=== PATIENT | male | born 1950 | race Caucasian/White ===

== ENCOUNTER → 2017-07-27 09:17 | Outpatient (CLI) | payer MEDICARE, OTHER, SELFPAY ==
[2017-07-27 10:24] LABS: PSA,Total- Diagnostic 0.04 ng/mL (0.0-4.0)
== END ==
PROVIDERS: Family Provider Family Medicine; PCP Family Medicine; Visit Provider Urology
DX: C61 Malignant neoplasm of prostate (principal)
CPT/HCPCS: 36415; 84153

== ENCOUNTER → 2017-11-04 07:34 | Outpatient (CLI) | payer MEDICARE, OTHER, SELFPAY ==
[2017-11-04 09:14] LABS: PSA,Total- Diagnostic 0.05 ng/mL (0.0-4.0)
== END ==
PROVIDERS: Family Provider Family Medicine; PCP Family Medicine; Visit Provider Urology
DX: C61 Malignant neoplasm of prostate (principal); R97.20 Elevated prostate specific antigen [PSA]
CPT/HCPCS: 36415; 84153

== ENCOUNTER → 2017-11-09 09:36 | Outpatient (CLI) | payer MEDICARE, OTHER, SELFPAY ==
--- NOTE | 2017-11-09 09:45 | RAD_ITS ---
STUDY: X-RAY CHEST REASON FOR EXAM: Male, 66 years old. History of renal cell carcinoma. TECHNIQUE: Frontal and lateral views of the chest. COMPARISON: 05/01/2017. FINDINGS: There is hyperinflation of the lungs consistent with chronic obstructive lung disease (COPD). No infiltrates or effusions There is no demonstrated pleural abnormality. Normal size heart. Normal mediastinum and corona. Normal visualized pulmonary arteries. Normal visualized aortic arch and descending thoracic aorta. There are diffuse degenerative changes of the visualized thoracic spine. Normal visualized ribs, clavicles, and shoulders. There is no demonstrated abnormality of the visualized soft tissue structures of the upper abdomen. RAD/Chest PA and Lateral IMPRESSION: There are findings consistent with COPD. There is no evidence of acute chest disease. Electronically Signed: Sebastian Russell MD at 16:50 EDT , Service support ,
== END ==
PROVIDERS: Family Provider Family Medicine; PCP Family Medicine; Visit Provider Urology
DX: C61 Malignant neoplasm of prostate (principal); Z85.528 Personal history of other malignant neoplasm of kidney
CPT/HCPCS: 71046

== ENCOUNTER → 2017-11-13 06:43 | Outpatient (CLI) | payer MEDICARE, OTHER, SELFPAY ==
--- NOTE | 2017-11-13 06:44 | CT_ITS ---
STUDY: CT ABDOMEN AND PELVIS WITH CONTRAST REASON FOR EXAM: Male, 66 years old. The patient has a history of prostate cancer and renal cell carcinoma. Partial right nephrectomy and prostatectomy. RADIATION DOSAGE (If Supplied By Facility): CTDIvol = ( 14.09 ) mGy, DLP = ( 1379.09 ) mGycm TECHNIQUE: Transaxial images were obtained from the dome of the diaphragm to the symphysis pubis without oral contrast. 100mL ml of Isovue 300 contrast was administered. Sagittal and coronal images were reconstructed. Individualized dose optimization techniques were used for this CT. COMPARISON: Comparison is made with prior study dated April 13, 2017. FINDINGS: The visualized lung bases are unremarkable. The visualized portions of the heart are within normal limits. There is decreased attenuation of the liver consistent with steatosis. I suspect tiny gallstones along the dependent portion of the gallbladder lumen. Normal spleen. Normal pancreas. Normal bilateral adrenal glands. Post surgical changes are seen along the posterior midportion of the right kidney. There is a residual 1.7 cm x 1.7 cm rounded fluid collection at the operative site. This may represent a small renal cyst or chronic postoperative changes. Normal left kidney. There is a small hiatal hernia. Normal small intestine. There are multiple colonic diverticula consistent with diverticulosis. The appendix is visualized and appears normal. There is scattered atherosclerotic calcification of the abdominal aorta, without a demonstrated aneurysm. Normal inferior vena cava. Normal retroperitoneum. Normal urinary bladder. The patient is status post prostatectomy. There is a small umbilical hernia containing fat. Small right inguinal hernia containing fat. There are degenerative changes of the visualized lumbar spine. CT/Abdomen/Pelvis WITH Contrast IMPRESSION: Fatty infiltration of the liver. Sigmoid diverticulosis. Residual postoperative changes along the lateral aspect of the right kidney. This has improved as compared to prior study. Electronically Signed: Alessandro Garcia MD at 12:49 EDT Tel [phone], Service support ,
[2017-11-13 06:56] LABS: CREATININE FINGERSTICK 1.1 mg/dL (0.70-1.30); EGFR FINGERSTICK > 60.0000 mL/min (>60)
== END ==
PROVIDERS: Family Provider Family Medicine; PCP Family Medicine; Visit Provider Urology
DX: C61 Malignant neoplasm of prostate (principal); Z85.528 Personal history of other malignant neoplasm of kidney
CPT/HCPCS: 74177; Q9967; A4216

== ENCOUNTER → 2018-05-06 07:41 | Outpatient (CLI) | payer MEDICARE, OTHER, SELFPAY ==
[2018-05-06 09:06] LABS: PSA,Total- Diagnostic 0.14 ng/mL (0.0-4.0)
== END ==
PROVIDERS: Family Provider Family Medicine; PCP Family Medicine; Referring Provider Urology; Visit Provider Urology
DX: Z85.46 Personal history of malignant neoplasm of prostate (principal)
CPT/HCPCS: 36415; 84153

== ENCOUNTER → 2018-09-02 08:12 | Outpatient (CLI) | payer MEDICARE, OTHER, SELFPAY ==
[2018-09-02 09:11] LABS: PSA,Total- Diagnostic 0.24 ng/mL (0.0-4.0)
== END ==
PROVIDERS: Family Provider Family Medicine; PCP Family Medicine; Referring Provider Urology; Visit Provider Urology
DX: C61 Malignant neoplasm of prostate (principal)
CPT/HCPCS: 36415; 84153

== ENCOUNTER → 2018-12-08 13:25 | Outpatient (CLI) | payer MEDICARE, OTHER, SELFPAY ==
[2018-12-08 15:12] LABS: Absolute Lymphocyte Count 2.19 X10^3/ul (0.83-4.51); Absolute Neutrophil Count 3.7 X10^3/uL (2.0-7.7); Basophil# 0.04 X10^3/uL; Basophil% 0.6 % (0-1); Eosinophil# 0.18 X10^3/uL; Eosinophils% 2.7 % (0-5); Hematocrit 39.4 % (40-54); Lymphocyte # 2.19 X10^3/ul (4.0); Lymphocyte % 32.7 % (19-41); Mean Corp Hgb Conc 35.5 g/gl (32-36); Mean Corpuscular Volume 90.2 fL (80-94); Mean Platelet Vol. 10.9 fl (6.2-12.0); Monocyte# 0.59 X10^3/uL; Monocyte% 8.8 % (0-10); Neutrophil # 3.68 X10^3/uL (2.7-7.7); Neutrophil % 55.1 % (47-70); Platelet Count 192 K/mm3 (150-450); RBC Distribution Width CV 12.4 % (11.6-14.6); RBC Distribution Width SD 40.7 fl (35.1-43.9); Red Blood Count 4.37 M/mm3 (4.6-6.2); White Blood Count 6.7 K/mm3 (4.4-11.0)
[2018-12-08 15:19] LABS: POSITIVE COUNT NO; POSITIVE DIFFERENTIAL NO; POSITIVE MORPHOLOGY NO
[2018-12-08 15:33] LABS: Creatinine, Serum 1.17 mg/dL (0.70-1.30); EST Glomerular Filtration Rate 66 mL/min (>60); Est Glom Filt Rate - Afr Amer 80 mL/min (>60); PSA,Total- Diagnostic 0.08 ng/mL (0.0-4.0)
== END ==
LOC: LABSPEC 13:28 → LAB 13:29
PROVIDERS: Family Provider Family Medicine; PCP Family Medicine; Referring Provider Radiology Radiation Oncology; Visit Provider Radiology Radiation Oncology
DX: Z01.818 Encounter for other preprocedural examination (principal); C61 Malignant neoplasm of prostate
CPT/HCPCS: 36415; 82565; 84153; 85025

== ENCOUNTER → 2018-12-09 14:12 | Outpatient (CLI) | payer MEDICARE, OTHER, SELFPAY ==
--- NOTE | 2018-12-09 14:19 | CT_ITS ---
STUDY: CT ABDOMEN AND PELVIS WITH CONTRAST REASON FOR EXAM: Male, 67 years old. Prostate carcinoma recurrence. This is a radiation therapy planning exam RADIATION DOSAGE (If Supplied By Facility): CTDIvol = ( 24.62 ) mGy, DLP = ( 2399.17 ) mGycm TECHNIQUE: Transaxial images were obtained from the dome of the diaphragm to the symphysis pubis with oral contrast. 100 IV/Oral Isovue 300 was administered. Sagittal and coronal images were reconstructed. Individualized dose optimization techniques were used for this CT. COMPARISON: None. FINDINGS: The visualized lung bases are unremarkable. The visualized portions of the heart are within normal limits. Normal liver. Normal gallbladder and extrahepatic biliary system. Normal spleen. Normal pancreas. Normal bilateral adrenal glands. Normal right kidney. Normal left kidney. Normal visualized stomach. Normal small intestine. There are multiple colonic diverticula consistent with diverticulosis. The appendix is visualized and appears normal. Normal abdominal aorta. Normal inferior vena cava. Normal retroperitoneum. Excreted IV contrast noted within the bladder. Prior prostatectomy. There appears to be radiation therapy seeds in the region of the prostate. There is a small umbilical hernia containing fat. There are diffuse degenerative changes of the visualized lumbar spine. CT/Abdomen/Pelvis WITH Contrast IMPRESSION: No acute findings throughout the abdomen or pelvis. Prior prostatectomy. Metallic seeds within the region of the prostate. Remainder is within normal limits as detailed above Electronically Signed: Alfred Dubon DO at 11:14 EDT Tel , Service support ,
--- NOTE | 2018-12-09 15:52 | NURSING ---
DURING CT A 16FR BELTRAN CATHETER WAS USED TO EXPEL AIR FROM THE RECTUM FOR THE PROSTATE PLANNING CT.
== END ==
PROVIDERS: Family Provider Family Medicine; PCP Family Medicine; Referring Provider Radiology Radiation Oncology; Visit Provider Radiology Radiation Oncology
DX: C61 Malignant neoplasm of prostate (principal); Z90.79 Acquired absence of other genital organ(s)
CPT/HCPCS: 74177; Q9967

== ENCOUNTER → 2018-12-29 18:04 | Outpatient (CLI) | payer MEDICARE, OTHER, SELFPAY ==
[2018-12-29 20:15] LABS: M R Staph aureus DNA By PCR Negative (Negative); Probe Check PASS; Staph aureus DNA By PCR NEGATIVE (Negative)
== END ==
PROVIDERS: Family Provider Family Medicine; PCP Family Medicine; Referring Provider Podiatrist; Visit Provider Podiatrist
DX: L60.0 Ingrowing nail (principal)
CPT/HCPCS: 87070; 87075; 87077; 87186; 87205; 87640

== ENCOUNTER → 2019-01-05 10:13 | Outpatient (CLI) | payer MEDICARE, OTHER, SELFPAY ==
[2019-01-05 11:27] LABS: Absolute Lymphocyte Count 0.76 X10^3/ul (0.83-4.51); Absolute Neutrophil Count 2.6 X10^3/uL (2.0-7.7); Basophil# 0.01 X10^3/uL; Basophil% 0.2 % (0-1); Eosinophil# 0.09 X10^3/uL; Eosinophils% 2.2 % (0-5); Hematocrit 36.9 % (40-54); Lymphocyte # 0.76 X10^3/ul (4.0); Mean Corp Hgb Conc 35.2 g/gl (32-36); Mean Corpuscular Hgb 31.3 pg (27.0-32.0); Mean Corpuscular Volume 88.9 fL (80-94); Mean Platelet Vol. 10.1 fl (6.2-12.0); Monocyte# 0.55 X10^3/uL; Monocyte% 13.7 % (0-10); Neutrophil % 64.9 % (47-70); Platelet Count 148 K/mm3 (150-450); RBC Distribution Width CV 12.1 % (11.6-14.6); RBC Distribution Width SD 38.4 fl (35.1-43.9); Red Blood Count 4.15 M/mm3 (4.6-6.2)
[2019-01-05 11:29] LABS: POSITIVE COUNT NO; POSITIVE DIFFERENTIAL NO; POSITIVE MORPHOLOGY NO
== END ==
PROVIDERS: Family Provider Family Medicine; PCP Family Medicine; Referring Provider Radiology Radiation Oncology; Visit Provider Radiology Radiation Oncology
DX: C61 Malignant neoplasm of prostate (principal)
CPT/HCPCS: 36415; 85025

== ENCOUNTER → 2019-01-31 09:22 | Outpatient (CLI) | payer MEDICARE, OTHER, SELFPAY ==
[2019-01-31 09:40] LABS: Absolute Lymphocyte Count 0.61 X10^3/uL (0.83-4.51); Absolute Neutrophil Count 4.3 X10^3/uL (2.0-7.7); Basophil# 0.02 X10^3/uL; Basophil% 0.3 % (0-1); Eosinophil# 0.13 X10^3/uL; Eosinophils% 2.2 % (0-5); Hemoglobin 12.5 g/dL (13.0-16.5); Lymphocyte # 0.61 X10^3/ul (4.0); Lymphocyte % 10.5 % (19-41); Mean Corp Hgb Conc 35.7 g/dL (32-36); Mean Corpuscular Volume 92.3 fL (80-94); Mean Platelet Vol. 9.6 fl (6.2-12.0); Monocyte% 12.1 % (0-10); NRBC Flagged by Analyzer 0 % (0-5); Neutrophil % 74.4 % (47-70); Platelet Count 170 K/mm3 (150-450); RBC Distribution Width CV 13.1 % (11.6-14.6); RBC Distribution Width SD 43.6 fl (35.1-43.9); Red Blood Count 3.79 M/mm3 (4.6-6.2); White Blood Count 5.8 K/mm3 (4.4-11.0)
== END ==
PROVIDERS: Family Provider Family Medicine; PCP Family Medicine; Referring Provider Radiology Radiation Oncology; Visit Provider Radiology Radiation Oncology
DX: C61 Malignant neoplasm of prostate (principal)
CPT/HCPCS: 36415; 85025

== ENCOUNTER 2019-04-27 10:52 | Day surgery (SDC) | payer MEDICARE, OTHER, SELFPAY ==
--- NOTE | 2019-04-20 01:54 | HP_ITS ---
Intake Vital Signs 04/20/19 Body Mass Index (BMI) 26.2 04/20/19 Height 5 ft 10 in 04/20/19 Weight: 196 lb 04/20/19 Body Mass Index (BMI) 28.1 04/20/19 Blood Pressure 155/79 H 04/20/19 Blood Pressure Location Rt brachial 04/20/19 Blood Pressure Position Sitting 04/20/19 Respiratory Rate 16 Intake Visit Reasons: Incisional Umbilical Hernia Chief Complaint: Syncope and Anemia Application Support Developer Required: No Is patient in pain?: No Allergies adhesive tape Allergy (Verified 04/20/19 13:12) blisters surgical tape Allergy (Uncoded 04/20/19 13:12) Rash Medications Amlodipine Besylate [Norvasc] 10 mg PO DAILY 04/23/17 [History Confirmed 04/20/19] Cider Vinegar [Apple Cider Vinegar] 300 mg PO QODAY 04/23/17 [History Confirmed 04/20/19] [facility] Medical History Postoperative atrial fibrillation (Acute) Near syncope (Acute) HTN (hypertension) (Chronic) Anemia (Acute) Prostate CA (Acute) Anemia (Inactive) Atrial fibrillation with RVR (Inactive) Hematuria (Inactive) Surgical History History of partial nephrectomy (Chronic) History of hand surgery (Resolved) S/P radical cystoprostatectomy (Resolved) History of partial nephrectomy (Inactive) S/P radical cystoprostatectomy (Inactive) Family History Mother CVA (cerebral vascular accident) Heart disease Father Heart disease Social History (Updated 04/20/19 @ 13:55 by Blayne Epperson MD) Smoking Status: Former smoker alcohol intake: current substance use type: does not use HPI HPI HPI: MARY ANN SCHROEDER, is a 68 M who presents to the office today for HPI HPI Surgical H&P: Yes HPI: MARY ANN SCHROEDER, is a 68 M who presents to the office today for Evaluation for an incisional hernia at his umbilicus. Patient has had a robotic prostatectomy and has developed a large hernia at his umbilical incision. He has not noticed any change in his bowel or bladder habits. It has gradually gotten larger over the last several years. ROS General General: No weight change, appetite, fatigue, colon cancer, breast cancer or weakness HEENT HEENT: No difficulty swallowing, eye injury, eye surgery, swollen glands or hoarseness Endo Endocrine: No thyroid disease, diabetes mellitus, thyroid cancer, Hair loss, heat intolerance or cold intolerance Skin Skin: No rash or changing moles Breast Breast: No left breast lump, right breast lump, nipple discharge, breast pain, abnormal mammogram, abnormal US or breast enlargement Musc Musculoskeletal: No back problems, arthritis, rheumatoid arthritis, gout or joint pain Cardio Cardiovascular: Yes high blood pressure; no murmur, pacemaker, heart disease, atrial fibrillation, heart attack, heart stent, palpitations, shortness of breat with exertion or chest pain Psych Psychiatric: Yes anxiety; no depression or hearing voices Resp Respiratory: No shortness of breath, No sleep apnea, No cough, No COPD, No asthma, No emphysema, No wheezing Gastro Gastrointestinal: No abdominal pain, No nausea or vomiting, No diarrhea, No constipation, No blood in stool, No acid reflux, Yes hemorrhoids, No ulcers, No gallbladder problem, No black,tarry stools Mike Hematologic: No blood thinners, No blood disorders, No bleeding, No anemia, No blood clots Neuro Neurologic: No system reviewed and no additional complaints, except as docu, No as per HPI, No abnormal walking, No abnormal hearing, No abnormal movements, No abnormal speech, No behavioral changes, No burning sensations, No confusion, No seizure-like activity, No unsteadiness, No dizziness, No localized weakness, No frequent falls, No headache(s), No lack of coordination, No loss of vision, No memory loss, No numbness, No other visual disturbances, No radiating pain, No restless legs, No sensory deficit, No fainting, No tingling, No tremor(s), No weakness, No other Exam Const General: no acute distress, well developed, well hydrated Orientation: oriented to person, oriented to place, oriented to time [facility] Head: normocephalic, atraumatic Ears: external ears normal Mouth: moist mucous membranes Eyes Sclera: sclerae normal Pupils: normal by confrontation Neck Neck: no lymphadenopathy noted Neck mass: No Thyroid: thyroid normal, symmetrical Chest Chest palpation & inspection: normal inspection of the chest Breast Palpation: No nipple discharge Resp Effort & Inspection: normal respiratory effort Auscultation: clear to auscultation bilaterally Percussion: percussion normal Cardio Rate: regular rate Rhythm: regular rhythm Heart Sounds: no murmurs GI Palpation: soft, no hepatosplenomegaly, no masses, tender Rectal Exam: other Other: An incisional hernia is identified at the umbilicus.It is reducible. No inguinal hernias are identified. Rectal exam deferred. Extrem General: normal to inspection, no clubbing, cyanosis or edema Assessment & Plan Problems 1. Incisional hernia, without obstruction or gangrene K43.2; K43.91 Plan My plan is to perform And incisional hernia repair at the umbilicus. We will use mesh. repair. The planned surgical procedure was discussed extensively with the patient. The risks, benefits, anticipated outcomes and possible complication were mentioned. The patient understands that all hernia repair surgery has a chance of recurrence and/or chronic post-operative pain. My staff has also explained the procedure in understandable terms and the patient was given the option to take printed material concerning the planned procedure. The patient had the opportunity to ask questions concerning the planned procedure. The patient freely consents to the planned procedure. I believe doing a transverse incision hair would probably be the best given the thinness of the skin at his umbilicus. Coding Level of Care Code Off vis,est,level 3 Diagnoses Incisional hernia, without obstruction or gangrene K43.2; K43.91 ??Obstruction and gangrene presence: without obstruction or gangrene 04/20/19 9835 <Electronically signed by Blayne kay MD> Date _ Blayne Epperson MD I have re-examined the patient. There are no clinical changes since date of exam.
[2019-04-20 13:14] VITALS: BMI 26.2
[2019-04-27] VITALS (7 sets, daily range): BP systolic 132–167; BP diastolic 95–103; PULSE 74–103; RESP 16–18; TEMP 36.3–36.8; O2SAT 94–99; BMI 27.2
[2019-04-27] MEDS: Lactated Ringers 1,000 ML 100 ML IV (11:53)
[2019-04-27] MEDS: Cefazolin 2 GM in 0.9% Normal Saline 100 ML IV (12:40)
[2019-04-27] MEDS: 0.9% Normal Saline (Pres. free 10 ML Vial (13:00)
[2019-04-27] MEDS: BUPIVACAINE LIPOSOME/PF 20 ML VIAL OPERA.SITE (13:00)
--- NOTE | 2019-04-27 13:43 | PCM.OPRPT ---
Problem List (1) Incisional hernia without obstruction or gangrene Status: Acute Report of Operation Date of Procedure: 04/27/19 Pre-Operative Diagnosis: Incisional hernia without obstruction or gangrene Post-Operative Diagnosis: Same Surgery/Procedure Performed:: Incisional hernia repair with mesh. (Ventrio ST hernia patch reference #[id number] lot number [id number]) Type of Anesthesia:: General Anesthesiologist: Joss Block Specimen's removed: none Estimated Blood Loss (mL): < 25 cc Fluids Replaced: 1 L LR Description of Procedure: She was brought into the operating room placed in the supine position under excellent general trach intubation the abdomen was sterilely prepped draped usual fashion patient had a previous port site placed above his umbilicus from a robotic prostatectomy I injected local made a transverse incision on the upper aspect over the incisional hernia at the umbilicus. I dissected down the patient had a rather large [place] cheese defect just above the umbilicus and in the umbilicus itself. I sharply took the peritoneum off of the umbilicus as not to injure the skin of the umbilicus and this was obtained without buttonholing. I then created a preperitoneal window all along the edge of the [place] cheese defect which extended in a cephalad direction. I inspected the bowel I did not see any adhesions on the hernia defect itself. I injected local all around the fascial edges. I then placed the to the wound. I sequentially tacked it down with #1 Nurolon's to the surrounding good fascia. I had a nice defect closure with this and good coverage. The wound was irrigated subcu was brought together with 2-0 Vicryl deep dermals of 3-0 Vicryl then a running 4-0 Monocryl. Dermabond was applied sterile dressings were applied and the patient tolerated the procedure well - Admit VTE Documentation VTE Present on Admission: No VTE Mechan Device Prophylaxis: SCD's VTE Pharm Prophylaxis ordered?: No Reason prophylaxis not ordered:: Treatment Not Indicated
--- NOTE | 2019-04-27 13:51 | DCINST_ITS ---
Discharge Diet: Light diet - advance as tolerated Discharge Activity: Return to Normal Activity, May Drive - when you are no longer taking narcotic pain medications., May Shower - with the bandage in place 1-2 days after surgery. Lifting Restrictions: 20 pounds for 8 weeks. Additional Activity Instructions:: Climbing stairs is fine, walking is encouraged. Sitting in bed may be uncomfortable. Sitting up using your lateral muscles (sitting up sideways) is usually more comfortable. Do not drive, work heavy equipment of sign legal documents for 24 hours. If your hernia repair was an ingunial repair, you may have scrotal swelling, an ice pack and/or athletic support can provide more comfort. Pain medications may cause nausea, you should typically eat light foods as you take your pain medications. Pain medications may also cause constipation. If you have difficulty with this, discuss with your doctor. Call your doctor if your incision/area has: Continuous Slow Oozing, Sudden Increased Bleeding, Increased Pain/ Swelling, Increased Redness, Foul Smelling Discharge Call your doctor if you observe: Fever of 101 or Higher Suture Line Care: Avoid Pulling/Pushing, Avoid Pinching/Bending Additional Dressing/Incision Instructions:: Leave the operative bandage on for 2-3 days. When you remove the bandage, leave the steri-strips on place until your follow up appointment or they fall off. Allergies/Adverse Reactions: Allergies adhesive tape Allergy (Verified 04/20/19 13:12) blisters surgical tape Allergy (Uncoded 04/20/19 13:12) Rash Medications to take at Discharge Amlodipine Besylate [Norvasc] 10 mg PO DAILY 04/23/17 Daily Defense 1 tab PO DAILY 04/21/19 Flourocil 1 dose TOPICAL DAILY 04/21/19 Oxycodone HCl/Acetaminophen [Percocet 5/325] 1 - 2 tab PO Q4H PRN PRN 6 Days #30 tab 04/27/19 The following prescriptions were given: Oxycodone HCl/Acetaminophen [Percocet 5/325] 1 - 2 tab PO Q4H PRN PRN 6 Days #30 tab PRN Reason: Pain Prescription Printed Primary Care Physician: Milton Mccurdy III, MD [Primary Care Provider] - Test Results: Test results from this visit will be discussed in further detail at your follow- up appointment, if applicable. Please Follow Up With: Blayne Epperson MD - [phone] When: Plan to have a follow up appointment in 7 days. Call to schedule.
== END 2019-04-27 15:35 | disposition home or self-care (01) ==
LOC: SDC 10:52 → AC 10:53
PROVIDERS: Family Provider Family Medicine; PCP Family Medicine; Referring Provider Surgery; Visit Provider Surgery
PROC: (CPT 49560; principal; 2019-04-27 12:45)
DX: K43.2 Incisional hernia without obstruction or gangrene (principal); I10 Essential (primary) hypertension; E78.00 Pure hypercholesterolemia, unspecified; F41.1 Generalized anxiety disorder; Z86.2 Personal history of diseases of the blood and blood-forming organs and certain disorders involving the immune mechanism; Z85.828 Personal history of other malignant neoplasm of skin; Z85.46 Personal history of malignant neoplasm of prostate; Z85.528 Personal history of other malignant neoplasm of kidney; Z87.891 Personal history of nicotine dependence; Z90.5 Acquired absence of kidney
CPT/HCPCS: 49560; 49568; 93005; J7120; C1781; J3490

== ENCOUNTER → 2019-08-18 07:38 | Outpatient (CLI) | payer MEDICARE, OTHER, SELFPAY ==
[2019-04-27 11:28] VITALS: BMI 27.2
[2019-08-18 08:25] LABS: PSA,Total- Diagnostic 0.02 ng/mL (0.0-4.0)
== END ==
PROVIDERS: PCP Family Medicine; Referring Provider Urology; Visit Provider Urology
DX: C61 Malignant neoplasm of prostate (principal)
CPT/HCPCS: 36415; 84153

== ENCOUNTER → 2020-02-15 10:19 | Outpatient (CLI) | payer MEDICARE, OTHER, SELFPAY ==
[2019-04-27 11:28] VITALS: BMI 27.2
[2020-02-15 11:57] LABS: PSA,Total- Diagnostic 0.15 ng/mL (0.0-4.0)
== END ==
PROVIDERS: PCP Family Medicine; Referring Provider Urology; Visit Provider Urology
DX: C61 Malignant neoplasm of prostate (principal)
CPT/HCPCS: 36415; 84153

== ENCOUNTER → 2020-06-12 11:30 | Outpatient (CLI) | payer MEDICARE, OTHER, SELFPAY ==
[2019-04-27 11:28] VITALS: BMI 27.2
[2020-06-12 13:10] LABS: PSA,Total- Diagnostic 0.23 ng/mL (0.0-4.0)
== END ==
PROVIDERS: PCP Family Medicine; Referring Provider Urology; Visit Provider Urology
DX: C61 Malignant neoplasm of prostate (principal)
CPT/HCPCS: 36415; 84153

== ENCOUNTER → 2020-11-23 10:48 | Outpatient (CLI) | payer MEDICARE, OTHER, SELFPAY ==
[2019-04-27 11:28] VITALS: BMI 27.2
== END ==
PROVIDERS: Referring Provider Urology; Visit Provider Urology
DX: C61 Malignant neoplasm of prostate (principal)
CPT/HCPCS: 36415; 84153

== ENCOUNTER → 2021-02-15 09:32 | Outpatient (CLI) | payer MEDICARE, OTHER, SELFPAY ==
--- NOTE | 2021-02-15 09:42 | RAD_ITS ---
STUDY: X-RAY - LUMBAR SPINE REASON FOR EXAM: Male, 70 years old. LOW BACK PAIN TECHNIQUE: 5 radiographic view(s) of the lumbar spine were obtained. COMPARISON: None FINDINGS: Normal lumbar lordosis. There is no substantial scoliosis. There is a normal alignment of the vertebrae. There is multilevel endplate spondylosis of the lumbar vertebrae. Normal disc space heights. There is no demonstrated spondylolysis of the pars interarticulares. Partially visualized bowel gas pattern is nonobstructive. RAD/L/S Spine Min 4 Views IMPRESSION: Degenerative changes of the spine, as detailed above. Electronically Signed: Isma Arcos MD at 8:02 EDT Tel , Service support ,
== END ==
PROVIDERS: PCP Family Medicine; Referring Provider Chiropractor; Visit Provider Chiropractor
DX: M54.5 Low back pain (principal); M51.34 Other intervertebral disc degeneration, thoracic region; M51.36 Other intervertebral disc degeneration, lumbar region; M99.03 Segmental and somatic dysfunction of lumbar region; M99.05 Segmental and somatic dysfunction of pelvic region; M99.02 Segmental and somatic dysfunction of thoracic region
CPT/HCPCS: 72110

== ENCOUNTER → 2021-02-18 14:16 | Outpatient (CLI) | payer MEDICARE, OTHER, SELFPAY ==
[2019-04-27 11:28] VITALS: BMI 27.2
--- NOTE | 2021-02-18 14:20 | CT_ITS ---
STUDY: CT ABDOMEN AND PELVIS WITH CONTRAST REASON FOR EXAM: Male, 70 years old. Right flank pain. Gross hematuria. The patient has a history of prostate and renal carcinoma. RADIATION DOSAGE (If Supplied By Facility): CTDIvol = ( 13.16 ) mGy, DLP = ( 848.01 ) mGycm TECHNIQUE: Transaxial images were obtained from the dome of the diaphragm to the symphysis pubis without oral contrast. IV 100mL Isovue-300 was administered. Sagittal and coronal images were reconstructed. Individualized dose optimization techniques were used for this CT. COMPARISON: Comparison is made with prior study dated 12/09/2018. FINDINGS: The visualized lung bases are unremarkable. The visualized portions of the heart are within normal limits. There is decreased attenuation of the liver consistent with steatosis. Normal gallbladder and extrahepatic biliary system. Normal spleen. Normal pancreas. There is a small, circumscribed, smooth, low attenuation left adrenal mass, consistent with an adrenal adenoma. This measures 1.2 cm. Normal right adrenal gland. Some cortical thinning and postoperative changes are seen in the posterior midportion of the right kidney in keeping with prior surgical intervention. Normal left kidney. Normal visualized stomach. Normal small intestine. There are scattered colonic diverticula consistent with diverticulosis. The appendix is visualized and appears normal. There is scattered atherosclerotic calcification of the abdominal aorta, without a demonstrated aneurysm. Normal inferior vena cava. Normal retroperitoneum. Normal urinary bladder. Metallic radiation seeds are seen in the prostate bed. The patient is status post prostatectomy. There is a small umbilical hernia containing fat. There are degenerative changes of the visualized lumbar spine. CT/Abdomen/Pelvis WITH Contrast IMPRESSION: Cortical thinning and postoperative changes are seen in the posterior midportion of the right kidney. This is in keeping with prior surgical intervention. Electronically Signed: Alessandro Garcia MD at 15:09 EDT , Service support ,
[2021-02-18 14:46] LABS: CREATININE FINGERSTICK 1.4 mg/dL (0.70-1.30)
== END ==
PROVIDERS: PCP Family Medicine; Referring Provider Urology; Visit Provider Urology
DX: R31.0 Gross hematuria (principal)
CPT/HCPCS: 74177; Q9967

== ENCOUNTER → 2021-02-26 09:01 | Outpatient (CLI) | payer MEDICARE, OTHER, SELFPAY ==
[2021-02-26 10:02] LABS: PSA,Total- Diagnostic 0.86 ng/mL (0.0-4.0)
== END ==
PROVIDERS: PCP Family Medicine; Referring Provider Urology; Visit Provider Urology
DX: C61 Malignant neoplasm of prostate (principal)
CPT/HCPCS: 36415; 84153

== ENCOUNTER → 2021-04-02 13:48 | Outpatient (CLI) | payer MEDICARE, OTHER, SELFPAY ==
--- NOTE | 2021-04-02 13:30 | PET_ITS ---
EXAMINATION: 18F Fluciclovine PET/CT CLINICAL HISTORY: A 70-year-old male with history of carcinoma of the prostate and primary renal cell carcinoma presenting for restaging examination. COMPARISON EXAMINATION: CT of the abdomen and pelvis report dated 02/18/21 PROCEDURE: The patient received an intravenous bolus injection of Axumin (fluciclovine F-18), on the imaging table with the patient in the supine position followed by an intravenous normal saline flush. The patient in the supine position with arms above the head, CT scan for attenuation correction was performed immediately following the bolus injection and left up for 1-2 minutes. The PET scan acquisition was begun within 3-5 minutes following injection from mid thigh to the base of the skull. The total scan time was registered between 20-30 minutes. Axumin (fluciclovine F-18) injection is indicated for positron emission tomography PET imaging in men with suspected prostate cancer recurrence based on elevation of the serum prostatic surface antigen (PSA) levels following prior treatment intervention. REFERENCE SUVs: LIVER PARENCHYMA: 5.9 BLOOD POOL: 1.1 BONE MARROW: 2.4 FINDINGS: Head/Neck: Symmetric radiopharmaceutical concentration is defined in the bilateral submandibular and parotid glands. There is no evidence of abnormal increased radiopharmaceutical concentration within the cranial vault. CHEST: There is no evidence of 18F fluciclovine uptake noted within the context of the right and left hemithorax pulmonary parenchyma, mediastinal structures or left and right thoracic perihilum. Physiologic tracer uptake is demonstrated in the left ventricular myocardium. Pertinent chest CT findings are as follows. There is atherosclerotic calcification defined in the thoracic aorta without evidence of dilatation-aneurysm formation. Coronary arterial calcification is observed. Bilateral axillary soft tissue densities with fatty hilus reveal no evidence of increased tracer uptake. There is questionable evidence of an apparent lipoma involving the left anterior chest wall. Abdomen/Pelvis: There is a subtle increase in radiopharmaceutical concentration defined in the right hemipelvis which appears associated with and/or contiguous to the right obturator externus with associated calcification. The calculated maximal standard uptake value is 2.2, less than bone marrow and liver reference. There is no evidence of abnormal increased tracer uptake on review of all three axis reconstructions. Physiologic radiopharmaceutical concentration is observed in the bilateral kidneys, urinary bladder, hepatic and splenic parenchyma, the pancreatic head-tail, visualized intestinal tract. The right kidney demonstrates markedly prominent tracer concentration. Pertinent abdomen and pelvis CT findings are as follows. There is atherosclerotic calcification defined in the abdominal aorta without evidence of dilatation-aneurysm formation. Bilateral inguinal soft tissue densities with fatty hilus are ametabolic. The prostate gland appears surgically absent. Surgical clip placement is defined in the bilateral lower hemipelvis. Skeletal: Degenerative changes are noted in the cervical, thoracic and lumbar spine without evidence of increased radiopharmaceutical concentration. There is no evidence of sclerotic, mixed sclerotic-lytic and/or lytic changes noted on review of the skeletal structures demonstrating evidence of facilitated tracer uptake. PET/PET/CT Tumor Base -Thigh Subs IMPRESSION: 1. NEGATIVE EXAMINATION. There is no definitive quantitative scintigraphic evidence of 18F fluciclovine avid recurrent-metastatic viable neoplastic disease. 2. Enhanced tracer uptake observed in the region of the right obturator externus musculature does not fulfill quantitative criteria for neoplasia and may represent inflammatory changes. (Valeria et al, Journal of Nuclear Medicine 55:1986, 2014). If neoplasia remains a diagnostic consideration, histopathologic sampling is recommended. Electronic Signature Christiano Brooks D.O. Electronically Signed: Christiano Brooks DO at 12:28 EDT Tel , Service support ,
== END ==
PROVIDERS: PCP Family Medicine; Referring Provider Urology; Visit Provider Urology
DX: C61 Malignant neoplasm of prostate (principal)
CPT/HCPCS: 78815; A9552; A9588

== ENCOUNTER → 2021-05-31 11:34 | Outpatient (CLI) | payer MEDICARE, OTHER, SELFPAY ==
[2021-05-31 13:22] LABS: PSA,Total- Diagnostic 1.23 ng/mL (0.0-4.0)
== END ==
PROVIDERS: PCP Family Medicine; Visit Provider Urology
DX: C61 Malignant neoplasm of prostate (principal)
CPT/HCPCS: 36415; 84153

== ENCOUNTER 2021-08-30 10:09 | Outpatient (CLI) | payer MEDICARE, OTHER, SELFPAY ==
[2021-08-30 11:07] LABS: PSA,Total- Diagnostic 0.08 ng/mL (0.0-4.0)
== END 2021-08-30 23:59 | disposition home or self-care (01) ==
LOC: LAB 10:11
PROVIDERS: PCP Family Medicine; Referring Provider Urology; Visit Provider Urology
DX: C61 Malignant neoplasm of prostate (principal)
CPT/HCPCS: 36415; 84153

== ENCOUNTER → 2022-01-17 | Outpatient (CLI) | payer MEDICARE, OTHER, SELFPAY | END | disposition home or self-care (01) | LOC: LAB 07:37 | PROVIDERS: PCP Family Medicine; Referring Provider Urology; Visit Provider Urology | DX: C61 Malignant neoplasm of prostate (principal) | CPT/HCPCS: 36415; 84153 ==

== ENCOUNTER → 2022-02-14 | Outpatient (CLI) | payer MEDICARE, OTHER, SELFPAY ==
--- NOTE | 2022-02-14 09:40 | TELEMED_ITS ---
[facility] has confirmed receipt of a request for visit. This document confirms receipt of the order initiating the consult. To find the results of the consultation, please view the patient's reports for the scanned Telemed Consult.
== END | disposition home or self-care (01) ==
LOC: PSN 08:22
PROVIDERS: PCP Family Medicine; Referring Provider Nurse Practitioner; Visit Provider Nurse Practitioner
DX: R47.9 Unspecified speech disturbances (principal)
CPT/HCPCS: 95819

== ENCOUNTER → 2022-05-23 | Outpatient (CLI) | payer MEDICARE, OTHER, SELFPAY ==
[2022-05-23 09:46] LABS: PSA,Total - Annual Screen 1.34 ng/mL (0.00-4.00)
[2022-05-23 14:25] LABS: PSA,Total- Diagnostic 1.34 ng/mL (0.0-4.0)
== END | disposition home or self-care (01) ==
LOC: LAB 08:13
PROVIDERS: PCP Family Medicine; Visit Provider Urology
DX: C61 Malignant neoplasm of prostate (principal)
CPT/HCPCS: 36415; 84153; G0103

== ENCOUNTER → 2022-06-04 | Outpatient (CLI) | payer MEDICARE, OTHER, SELFPAY ==
--- NOTE | 2022-06-04 10:30 | PET_ITS ---
EXAMINATION: F 18 Pylarify PET-CT INDICATIONS: A 71-year-old male with history of carcinoma of the prostate presenting for restaging examination. COMPARISON: 18F Fluciclovine PET CT dated 04/02/21. TECHNIQUE: Following the intravenous administration of 9.387 mCi of PSMA-Pylarify via the right antecubital fossa, image acquisitions of the head, neck, chest, abdomen and pelvis to the level of the mid thigh at 73 minutes post-tracer distribution reveal: The examination was interpreted using the EANM (Faye et al., Journal of Nuclear Medicine Molecular Imaging 44:1622, 2017) and PROMISE (Sruthi et al., Journal of Nuclear Medicine 59:469, 2018) interpretive criteria. HEIGHT: 70 inches. WEIGHT: 190 lbs. PSMA expression score PROMISE (PROSTATE CANCER MOLECULAR IMAGING STANDARDIZED EVALUATION) criteria: High (3): SUV ? parotid-salivary gland, intermediate (2): SUV ? liver, low (1): > blood pool, < liver, (0): < blood pool. SUV reference values: Parotid glands 27.49 Normal liver parenchyma 7.6 Blood pool 1.9 FINDINGS: Head/Neck: Symmetric radiopharmaceutical concentration defined in the parotid and submandibular glands. Physiologic activity is noted in the nasal cavity. There is no evidence of abnormal increased tracer uptake within the cranial vault. CHEST: There is no evidence of abnormal increased radiopharmaceutical within the context of the bilateral hemithorax pulmonary parenchyma, mediastinal structures and right-left thoracic perihilum. Pertinent chest CT findings are as follows. Atherosclerotic calcification is defined in the thoracic aorta without evidence of dilatation, aneurysm formation. Coronary arterial calcification is observed. Bilateral axillary and mediastinal soft tissue densities are non-radiopharmaceutical avid. There is no evidence of increased tracer uptake noted within the context of the bilateral hemithorax pulmonary parenchyma. A noncalcified parenchymal density noted in the right mid lateral lung zone adjacent to pulmonary vasculature demonstrates no evidence of increased radiotracer avidity. Bilateral axillary soft tissue densities are nonglucose avid. Mediastinal soft tissue densities demonstrate no evidence of increased glucose metabolism. Abdomen/Pelvis: There is physiologic tracer distribution noted in the hepatic and splenic parenchyma, the right and left renal units, the visualized intestinal tract, and urinary bladder. The abdomen and pelvis CT findings are as follows. Colonic diverticulosis is defined without evidence of diverticulitis. There is atherosclerotic calcification defined in the abdominal aorta without evidence of dilatation-aneurysm formation. Abdominal-pelvic arterial calcification is observed. Right-left inguinal soft tissue densities are ametabolic. Post surgical changes are noted in the region of the prostatic bed. Skeletal: Degenerative changes defined in the cervical, thoracic and lumbar spine demonstrate no evidence of glucose hypermetabolism. There is a focal increase in tracer uptake noted in the right lower lateral chest wall associated with rib consistent with trauma-fracture. PET/PET/CT Tumor Base -Thigh Subs IMPRESSION: 1. NEGATIVE EXAMINATION. There is no definitive quantitative scintigraphic evidence of recurrent-viable prostatic neoplasm. 2. Focal increased radiopharmaceutical concentration noted within the right lateral chest wall is consistent with trauma-fracture. (Kirill et al, tomography 4:182, 2018). Electronic Signature Christiano Brooks D.O. Electronically Signed: Christiano Brooks, at 8:54 EST ,
== END | disposition home or self-care (01) ==
LOC: ONC 10:07
PROVIDERS: PCP Family Medicine; Referring Provider Urology; Visit Provider Urology
DX: C61 Malignant neoplasm of prostate (principal); R97.21 Rising PSA following treatment for malignant neoplasm of prostate
CPT/HCPCS: 78815; A9595

== ENCOUNTER → 2022-08-29 | Outpatient (CLI) | payer MEDICARE, OTHER, SELFPAY ==
[2022-08-29 10:52] LABS: PSA,Total- Diagnostic 0.12 ng/mL (0.0-4.0)
== END | disposition home or self-care (01) ==
PROVIDERS: PCP Family Medicine; Referring Provider Registered Nurse; Visit Provider Registered Nurse
DX: C61 Malignant neoplasm of prostate (principal)
CPT/HCPCS: 36415; 84153

== ENCOUNTER → 2023-01-10 | Outpatient (CLI) | payer MEDICARE, OTHER, SELFPAY ==
[2023-01-10 09:04] LABS: PSA,Total- Diagnostic 0.25 ng/mL (0.0-4.0)
== END | disposition home or self-care (01) ==
LOC: LAB 07:33
PROVIDERS: PCP Family Medicine; Referring Provider Registered Nurse; Visit Provider Registered Nurse
DX: C61 Malignant neoplasm of prostate (principal)
CPT/HCPCS: 36415; 84153

== ENCOUNTER → 2023-07-14 | Outpatient (CLI) | payer MEDICARE, OTHER, SELFPAY ==
[2023-07-14 10:52] LABS: PSA,Total- Diagnostic 1.84 ng/mL (0.0-4.0)
== END | disposition home or self-care (01) ==
LOC: LAB 09:06
PROVIDERS: PCP Family Medicine; Referring Provider Urology; Visit Provider Urology
DX: C61 Malignant neoplasm of prostate (principal)
CPT/HCPCS: 36415; 84153

== ENCOUNTER → 2023-08-04 | Outpatient (CLI) | payer MEDICARE, OTHER, SELFPAY ==
--- OUTSIDE RECORDS SUMMARY | 2023-08-04 09:44 | XMS RPT_ITS | CCD ---
Author Name Unknown Address [address] [facility] [address] [place] [address] Organization [facility] Care Team Providers Care Senior Contract Specialist Name Role Phone Roshni VANEGAS, Margarita Vera Unavailable [phone] Caleb REID, Fredo Carbajal Unavailable Richie Swift MD Primary Care Provider Richie Swift MD Primary Care Provider Richie Swift MD Primary Care Provider Richie Swift MD Primary Care Provider RAMIRO WATSON Referring Unavailable RICHIE SWIFT Primary Care Unavailable RAMIRO WATSON Attending Unavailable RICHIE SWIFT Referring Unavailable RICHIE SWIFT Primary Care Unavailable Allergies Allergy Classification Reported Allergen(s) Allergy Type Date of Onset Reaction(s) Facility (20 sources) Adhesive Tape; Translations: [ADHESIVE TAPE (ROSINS)] Allergy to substance 7 Other: See Comments [facility] Work Phone: (20 sources) ezetimibe; Translations: [EZETIMIBE] Drug Allergy 0 Diarrhea [facility] Work Phone: [phone] (20 sources) Ramipril; Translations: [RAMIPRIL] Drug Allergy 7 Cough [facility] Work Phone: [phone] (20 sources) rosuvastatin; Translations: [ROSUVASTATIN CALCIUM] Drug Allergy 9 Myalgia [facility] Work Phone: (20 sources) Simvastatin; Translations: [SIMVASTATIN] Drug Allergy 10-07-200 9 Myalgia [facility] Work Phone: Medications Current Medications Medication Drug Class(es) Dates Sig (Normalized) Sig (Original) iv contrast (will be provided with radiology test) (1 source) Start: 11-29-2021 End: 11-30-2021 inject 1 dose intravenously once iv contrast (will be provided with radiology test) MRI Brain Inject, intravenously, once for 1 dose.No IV access, insert saline lock prior to beginning of sedation, infusion, injection of imaging exam.Discontinue saline lock post exam. If Pt. has a central line or IVAD, may access for administration according to line specific nursing protocol.Once exam is complete flush line and de-access according to line specific nursing protocol in the MR contrast administration guidelines link 1 Each 0 11/29/2021 11/30/2021 Active Completed/Discontinued Medications Medication Drug Class(es) Dates Sig (Normalized) Sig (Original) amLODIPine 10 mg oral tablet (20 sources) Dihydropyridine Calcium Channel Maribel Start: 08-26-2021 End: 10-21-2022 take 1 tablet by mouth once daily amLODIPine (NORVASC) 10 mg tablet Take 1 tablet by mouth once daily. 90 tablet 3 10/21/2022 Active Problems Active Problems Problem Classification Problem Date Documented Date Episodic/Chronic Anxiety disorders (20 sources) Generalized anxiety disorder; Translations: [Generalized anxiety disorder] Onset: 06-30-2017 10-24-2020 Chronic Cancer of kidney and renal pelvis (20 sources) Primary malignant neoplasm of kidney; Translations: [Malignant neoplasm of unspecified kidney, except renal pelvis] Onset: 01-12-2017 10-24-2020 Chronic Cancer of prostate (20 sources) Malignant tumor of prostate; Translations: [Malignant neoplasm of prostate] Onset: 06-30-2017 10-24-2020 Chronic Cardiac dysrhythmias (1 source) Atrial fibrillation; Translations: [Unspecified atrial fibrillation] Onset: 05-04-2017 05-04-2017 Chronic Chronic kidney disease (20 sources) Chronic kidney disease stage 3A ; Translations: [Stage 3a chronic kidney disease (HCC)] Onset: 06-30-2017 Chronic Chronic kidney disease (1 source) Chronic kidney disease; Translations: [Stage 3a chronic kidney disease (HCC)] Onset: 10-24-2020 Disorders of lipid metabolism (20 sources) Mixed hyperlipidemia; Translations: [Mixed hyperlipidemia] Onset: 05-14-2005 Chronic Essential hypertension (20 sources) Benign essential hypertension; Translations: [Essential (primary) hypertension] Onset: 01-12-2007 Chronic Fluid and electrolyte disorders (1 source) Hyperkalemia; Translations: [Hyperkalemia] Episodic Osteoarthritis (20 sources) Arthritis of right elbow; Translations: [Primary osteoarthritis, right elbow] Onset: 10-11-2012 10-24-2020 Chronic Other connective tissue disease (2 sources) Radial styloid tenosynovitis [de Quervain]; Translations: [Radial styloid tenosynovitis] Onset: 09-11-2021 09-11-2021 Episodic Other nervous system disorders (2 sources) Aphasia; Translations: [Aphasia] Chronic Other nervous system disorders (2 sources) Dysphasia; Translations: [Dysphasia] Episodic Other nervous system disorders (1 source) Disturbance in speech; Translations: [Unspecified speech disturbances] Episodic Other nutritional; endocrine; and metabolic disorders (20 sources) Hypercalcemia; Translations: [Hypercalcemia] Onset: 10-30-2021 Chronic Other skin disorders (20 sources) Actinic keratosis; Translations: [Actinic keratosis] 10-24-2020 Episodic Residual codes; unclassified (2 sources) Confusional state; Translations: [Disorientation, unspecified] Episodic Transient cerebral ischemia (2 sources) Cerebral ischemia; Translations: [Transient cerebral ischemic attack, unspecified] Chronic Past or Other Problems Problem Classification Problem Date Documented Da te Episodic/Chronic Administrative/social admission (20 sources) Advance directive discussed with patient; Translations: [Other specified counseling] Onset: 10-30-2021 Episodic Anal and rectal conditions (20 sources) Stenosis of rectum and anus; Translations: [Stenosis of anus and rectum] Onset: 06-30-2017 10-24-2020 Episodic Other aftercare (20 sources) Patient encounter status; Translations: [Other fdc (current) drug therapy] Onset: 10-07-2021 Episodic Other aftercare (20 sources) Long-term current use of aspirin; Translations: [manager intermediate (current) use of aspirin] Onset: 06-30-2017 06-30-2017 Episodic Other ear and sense organ disorders (20 sources) Noise-induced hearing loss; Translations: [Noise effects on inner ear, unspecified ear] Onset: 12-26-2014 10-24-2020 Episodic Residual codes; unclassified (20 sources) Absent kidney; Translations: [Acquired absence of kidney] Onset: 06-30-2017 10-24-2020 Episodic Residual codes; unclassified (20 sources) History of partial nephrectomy; Translations: [Acquired absence of kidney] Onset: 06-30-2017 10-24-2020 Episodic Residual codes; unclassified (20 sources) Active living will ; Translations: [Other specified health status] Onset: 10-30-2021 Episodic Unclassified (2 sources) Problem Results Test Name Value Interpretation Reference Range Facil ity Vital Signs Date Time Vital Sign Value Performing Clinician Facility 01-30-2022 08:04-0400 Body temperature 98.2 [degF] Amie Decker MONOGRAM MAKER.DEPUTY DIRECTOR OF NURSING Work Phone: [facility] 01-30-2022 08:04-0400 Body weight 89.36 kg Amie Decker MONOGRAM MAKER.DEPUTY DIRECTOR OF NURSING Work Phone: [facility] 01-30-2022 08:04-0400 Diastolic blood pressure 102 mm[Hg] Amie Espinozahausen MONOGRAM MAKER.DEPUTY DIRECTOR OF NURSING Work Phone: [facility] 01-30-2022 08:04-0400 Heart rate 70 /min Amie Decker MONOGRAM MAKER.DEPUTY DIRECTOR OF NURSING Work Phone: [facility] 01-30-2022 08:04-0400 Respiratory rate 18 /min Amie Decker MONOGRAM MAKER.DEPUTY DIRECTOR OF NURSING Work Phone: [facility] 01-30-2022 08:04-0400 SaO2% (BldA) [Mass fraction] 97 % Amie Decker MONOGRAM MAKER.DEPUTY DIRECTOR OF NURSING Work Phone: [facility] 01-30-2022 08:04-0400 Systolic blood pressure 176 mm[Hg] Amie Espinozahaussofya MONOGRAM MAKER.DEPUTY DIRECTOR OF NURSING Work Phone: [facility] 11-29-2021 10:28-0400 Diastolic blood pressure 82 mm[Hg] Ramiro Watson PA-C Work Phone: [facility] 11-29-2021 10:28-0400 Systolic blood pressure 116 mm[Hg] Ramiro Watson PA-C Work Phone: [facility] 11-29-2021 10:03-0400 Body temperature 98.1 [degF] Ramiro Watson PA-C Work Phone: [facility] 11-29-2021 10:03-0400 Body weight 88.91 kg Ramiro Watson PA-C Work Phone: [facility] 11-29-2021 10:03-0400 Heart rate 84 /min Ramiro Watson PA-C Work Phone: [facility] 11-29-2021 10:03-0400 Respiratory rate 18 /min Ramiro Watson PA-C Work Phone: [facility] 11-04-2021 13:20-0400 Diastolic blood pressure 82 mm[Hg] Richie Swift MD Work Phone: [facility] 11-04-2021 13:20-0400 Systolic blood pressure 116 mm[Hg] Richie Swift MD Work Phone: [facility] 10-30-2021 14:54-0400 Diastolic blood pressure 92 mm[Hg] Richie Swift MD Work Phone: [facility] 10-30-2021 14:54-0400 Systolic blood pressure 144 mm[Hg] Richie Swift MD Work Phone: [facility] 10-30-2021 14:03-0400 Body height 177.8 cm Richie Swift MD Work Phone: [facility] 10-30-2021 14:03-0400 Body weight 88.45 kg Richie Swift MD Work Phone: [facility] 10-30-2021 14:03-0400 Heart rate 72 /min Richie Swift MD Work Phone: [facility] 10-30-2021 14:03-0400 Respiratory rate 14 /min Richie Swift MD Work Phone: [facility] NEGATED: Highlighted [id number] 13:29-0400 Body height 179.07 cm Teri Rios LPN [facility] Work Phone: NEGATED: Highlighted [id number] 13:29-0400 Body height 179 cm Teri Rios GANG LEADER [facility] Work Phone: NEGATED: Highlighted [id number] 13:29-0400 Body mass index (BMI) [Ratio] 27.54 kg/m2 Teri Rios LPN [facility] Work Phone: NEGATED: Highlighted [id number] 13:29-0400 Body weight 88 kg Teri Rios GANG LEADER [facility] Work Phone: NEGATED: Highlighted [id number] 14:30-0400 Body height 179 cm Sharon Pavick AT [facility] Work Phone: NEGATED: Highlighted [id number] 14:30-0400 Body height 179.07 cm Sharon Pavick AT [facility] Work Phone: NEGATED: Highlighted [id number] 14:30-0400 Body mass index (BMI) [Ratio] 27.54 kg/m2 Sharon Pavick AT [facility] Work Phone: NEGATED: Highlighted [id number] 14:30-0400 Body weight 88 kg Sharon Pavick AT [facility] Work Phone: Encounters Encounter Date Encounter Type Care Provider Facility Start: 04-28-2023 ambulatory Carter Owen MA [facility] Procedures Date Procedure Procedure Detail Performing Clinician Start: 11-12-2022 Lipid 1996 panel - S tc or Plasma Carter Owen MA Start: 05-23-2022 PSA screening [facility] Provi cedrick Start: 02-19-2022 Mra head w/o contrst material Amie Dahlhausen MONOGRAM MAKER.DEPUTY DIRECTOR OF NURSING Work Phone: Start: 12-11-2021 Mri brain brain stem w/o w/contrast material Ramiro Watson PA-C Work Phone: Start: 10-30-2021 Adult depression screening assessment Richie Swift MD Work Phone: Start: 10-02-2021 End: 10-02-2021 BP scrn no perf at interval Fredo Ellis MD Work Phone: Start: 10-02-2021 End: 10-02-2021 Calc BMI abv up patrick f/u Fredo Ellis MD Work Phone: Start: 10-02-2021 End: 10-02-2021 Current tobacco non-user cad cap copd pv dm Fredo Ellis MD Work Phone: Start: 10-02-2021 End: 10-02-2021 Docrev cur meds by cami Ellis MD Work Phone: Start: 10-02-2021 End: 10-02-2021 Pain neg no plan Fredo Monreal Work Phone: Start: 10-02-2021 End: 10-02-2021 Patient encounter procedure Fredo Ellis MD Work Phone: Start: 09-11-2021 End: 09-11-2021 Betamethasone acet&sod phosp Fredo Ellis MD Work Phone: Start: 09-11-2021 End: 09-11-2021 BP scrn no perf at interval Fredo Ellis MD Work Phone: Start: 09-11-2021 End: 09-11-2021 Calc BMI abv up patrick f/u Fredo Ellis MD Work Phone: Start: 09-11-2021 End: 09-11-2021 Current tobacco non-user cad cap copd pv dm Fredo Ellis MD Work Phone: Start: 09-11-2021 End: 09-11-2021 Docrev cur meds by cami Ellis MD Work Phone: Start: 09-11-2021 End: 09-11-2021 Injection 1 tendon sheath/ligament aponeurosis Fredo Ellis MD Work Phone: Start: 09-11-2021 End: 09-11-2021 Pain neg no plan Fredo Monreal Work Phone: Start: 09-11-2021 End: 09-11-2021 Patient encounter procedure Fredo Ellis MD Work Phone: Start: 09-11-2021 End: 09-11-2021 Radex wrist complete minimum 3 views Fredo Ellis MD Work Phone: Start: 09-11-2021 End: 09-11-2021 Whfo w/o joints pre ots Fredo raza MD Work Phone: Start: 09-04-2020 Adult depression screening assessment Richie Swift MD Work Phone: Start: 03-01-2015 Colonoscopy Richie peck MD Work Phone: NEGATED: Highlighted rowStart: 10-02-2021 End: 10-02-2021 Documentation of current medications Teri Rios LPN NEGATED: Highlighted rowStart: 09-11-2021 End: 09-11-2021 Documentation of current medications Sharon Marley AT Plan of Treatment Date Care Activity Detail Author Start: 11-13-2027 Lipid 1996 panel - S tc or Plasma Lipid Screening [facility] Start: 11-13-2027 LIPID SCREEN LIPID SCREEN [facility] Start: 10-23-2026 LIPID SCREEN LIPID SCREEN [facility] Start: 11-12-2025 DIABETES SCREEN DIABETES SCREEN [facility] Start: 11-12-2025 Diabetes Screening Diabetes Screenin g [facility] Start: 10-19-2025 LIPID SCREEN LIPID SCREEN [facility] Start: 10-30-2024 DIABETES SCREEN DIABETES SCREEN [facility] Start: 10-23-2024 DIABETES SCREEN DIABETES SCREEN [facility] Start: 11-13-2023 ANNUAL PCP TEAM CORK GRINDER ROHIT DISEASE VISIT ANNUAL PCP TEAM CHRONIC DISEASE VISIT [facility] Start: 11-13-2023 BP CONTROLLED (<130/80) BP CONTROLLE D (<130/80) [facility] Start: 11-13-2023 SERUM CREATININE SERUM CREATININE Cl [facility] Start: 10-20-2023 DIABETES SCREEN DIABETES SCREEN [facility] Start: 02-27-2023 Covid-19 Vaccine () Covid-19 Vaccine () [facility] Start: 02-27-2023 Influenza vaccination C [facility] Start: 11-29-2022 ANNUAL PCP TEAM CORK GRINDER ROHIT DISEASE VISIT ANNUAL PCP TEAM CHRONIC DISEASE VISIT [facility] Start: 11-04-2022 BP CONTROLLED (<130/80) BP CONTROLLE D (<130/80) [facility] Start: 10-30-2022 Adult depression scr eening assessment DEPRESSION SCREENING [facility] Start: 10-30-2022 ANNUAL PCP TEAM CORK GRINDER ROHIT DISEASE VISIT ANNUAL PCP TEAM CHRONIC DISEASE VISIT [facility] Start: 10-30-2022 SERUM CREATININE SERUM CREATININE [facility] Start: 10-30-2022 SHINGRIX VACCINE (1 of 2) CORTEZ GRIX VACCINE (1 of 2) [facility] Immunizations Immunization Date Immunization Notes Care Provider Ly godwin 04-14-2022 influenza virus vacc ine, unspecified formulation Carter Owen MA [facility] 09-07-2020 COVID-19 vaccine, ag e 12+ yr (PFIZER-BIONTECH - PURPLE TOP) Richie Swift MD Work Phone: [facility] 08-17-2020 COVID-19 vaccine, ag e 12+ yr (PFIZER-BIONTECH - PURPLE TOP) Richie Swift MD Work Phone: [facility] 04-21-2020 influenza, high-dose , quadrivalent vaccine (FLUZONE HIGH DOSE QUADRIVALENT) Richie Swift MD Work Phone: [facility] 06-29-2019 influenza, high dose seasonal, preservative-free Richie Swift MD Work Phone: [facility] 04-14-2018 influenza, high dose seasonal, preservative-free Richie Swift MD Work Phone: [facility] 01-17-2016 pneumococcal polysaccharide vaccine, 23 valrahul Swift MD Work Phone: [facility] 01-01-2015 pneumococcal conjuga te vaccine, 13 valrahul Swift MD Work Phone: [facility] 09-19-2013 zoster vaccine, live Richie Swift MD Work Phone: [facility] 04-08-2010 influenza virus vacc ine, unspecified formulation Richie Swift MD Work Phone: [facility] Work Phone: 08-09-1999 diphtheria and tetan us toxoids, adsorbed for pediatric use Richie Swift MD Work Phone: [facility] Payers Date Payer Category Payer Private Health Insurance [facility] CHO[facility] PLUS [id number] 2019-Present [phone] [address] [place] [address] [facility] [id number] 2019 Private Health Insurance [facility] CHOICE PLUS [id number] 2019-Present [phone] [address] [place] [address] [facility] [id number] 2019 Unknown [id number] 2014 Medicare MEDICARE MEDICAR E A AND B [id number] 2014-Present [phone] [address] [address] [place] [address] Medicare [id number] 2014 Medicare MEDICARE MEDICAR E A AND B [id number] 2014-Present [phone] [place] [address] Medicare [id number] 2014 Medicare [id number] Social History Date Type Detail Facility Start: 09-11-2021 End: 10-02-2021 Assertion Unknown if ever smoked [facility] Work Phone: Start: 06-30-2017 End: 11-12-2022 Tobacco smoking status NHIS Never smoked tobacco [facility] Start: 12-24-2020 End: 11-12-2022 Alcohol intake Current drinker of alcohol (finding) [facility] Start: 1950 Sex Assigned At Not on file C [facility] Start: 10-20-2021 End: 01-30-2022 Exposure to SARS-CoV-2 (event) Not sure [facility] Start: 06-30-2017 End: 11-12-2022 Tobacco use and exposure Smokeless tobacco non-user [facility] Start: 11-12-2022 History of Social function [facility] Work Phone: Start: 11-12-2022 Tobacco use panel [facility] Work Phone: Adult Depression Screening Assessment 0 [facility] Work Phone: Clinical Notes 06-30-2017 to 07-16-2023 Carter Owen MA - 04/28/2023 10:26 AM Montrell Rios LPN - 01/13/2023 8:23 AM EDTTelephone Encounter - Maile Murguia RN - 11/26/2022 10:11 AM EDTPatient Instructions Note Date & Type Note Facility 07-16-2023 Note HNO ID: [id number] Author: MONTRELL MANDUJANO LPN Service: ? Author Type: LICENSED NURSE Type: Progress Notes Filed: 07/16/2023 12:36 Note Text: Scan on 07/16/2023 11:17 AM by Provider, External, PAJoselitoC: Consultation - [facility] 07-14-2023 Note HNO ID: [id number] Author: MONTRELL MANDUJANO LPN Service: ? Author Type: LICENSED NURSE Type: Progress Notes Filed: 07/14/2023 12:44 Note Text: Scan on 07/14/2023 11:16 AM by Provider, Shiela, PAJoselitoC: Chemistry [facility] 04-28-2023 Note Patient Outreach (NE TNAV) MARY ANN SCHROEDER ([id number]) 1950 M Date Time Provider Department 04/28/23 CARTER OWEN NETNAV During your visit today, we recorded the following information about you: Carter Owen MA 04/28/2023 3:35 PM Signed POPULATION HEALTH NAVIGATION OUTREACH Action/FORMER[facility] lL NO MYCHART Colorectal Cancer Screening due on 03/01/2020 Influenza Vaccine(1) due on 02/27/2023 Patient Identified by Name and : NO Outreach Outcome/Action Unable to reach patient: Left message Did you use a PCP flex slot to schedule this appointment? N/A Reason for Outreach Care Gap or Scheduling/Wellness visits Payer: Payor: MEDICARE / Plan: MEDICARE A AND B / Product Type: Medicare / Care Gap Reviewed:: Colorectal Cancer Screening Flu Vaccine Reminder: Reminder note to check Health Maintenance for items below Health Maintenance items due: DTaP,Tdap,Td Vaccine(2 - Tdap) due on 08/09/2009 RSV Vaccine(1 - 1-dose 60+ series) Never done Shingrix Vaccine(2 of 3) due on 11/14/2013 Colorectal Cancer Screening due on 03/01/2020 Influenza Vaccine(1) due on 02/27/2023 Covid-19 Vaccine(2022- season) due on 02/27/2023 Navigation Signature: Carter Owen MA April 28, 2023 10:26 AM Allergies As of Date: 04/28/2023 Noted Allergy Reaction ADHESIVE TAPE (ROSINS) 05/13/2017 14 - Other: See Comments ALTACE (RAMIPRIL) 01/12/2007 3 - Cough CRESTOR (ROSUVASTATIN CALCIUM) 04/04/2009 17 - Myalgia Comments: myalgia SIMVASTATIN 04/04/2009 17 - Myalgia Comments: myalgia ZETIA (EZETIMIBE) 07/31/2009 6 - Diarrhea Comments: diarrhea Date Reviewed: 11/12/2022 Reviewed by: Montrell Mandujano LPN - Fully Assessed Reason for Visit: Population Health Navigation Outreach [3910] Cmt: ACO CARE GAPS Prescriptions as of 04/28/2023 - simvastatin (ZOCOR) 20 mg tablet Take 1 tablet by mouth daily at bedtime. For cholesterols. - amLODIPine (NORVASC) 10 mg tablet Take 1 tablet by mouth once daily. - fluticasone (FLONASE) 50 mcg/actuation nasal spray Use 2 Sprays in each nostril once daily. 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 Acquired absence of kidney [Z90.5] 06/30/2017 Acute posthemorrhagic anemia [D62] 06/30/2017 08/10/2018 Atrial fibrillation with rapid ventricular resp*06/30/2017 08/10/2018 Malignant neoplasm of prostate (HCC) [C61] 06/30/2017 Stage 3a chronic kidney disease (HCC) [N18.31] 06/30/2017 Chronic prostatitis [N41.1] 06/30/2017 06/30/2017 Generalized anxiety disorder [F41.1] 06/30/2017 Hematuria [R31.9] 06/30/2017 06/30/2017 History of partial nephrectomy [Z90.5] 06/30/2017 manager intermediate (current) use of aspirin [Z79.82] 06/30/2017 Retention of urine, unspecified [R33.9] 06/30/2017 06/30/2017 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 04-28-2023 Note HNO ID: [id number] Author: Carter Owen MA Service: ? Author Type: Moving Worker Type: Progress Notes Filed: 04/28/2023 3:35 PM Note Text: POPULATION HEALTH NAVIGATION OUTREACH Action/FYI lLVM NO MYCHART Colorectal Cancer Screening due on 03/01/2020 Influenza Vaccine(1) due on 02/27/2023 Patient Identified by Name and : NO Outreach Outcome/Action Unable to reach patient: Left message Did you use a PCP flex slot to schedule this appointment? N/A Reason for Outreach Care Gap or Scheduling/Wellness visits Payer: Payor: MEDICARE / Plan: MEDICARE A AND B / Product Type: Medicare / Care Gap Reviewed:: Colorectal Cancer Screening Flu Vaccine Reminder: Reminder note to check Health Maintenance for items below Health Maintenance items due: DTaP,Tdap,Td Vaccine(2 - Tdap) due on 08/09/2009 RSV Vaccine(1 - 1-dose 60+ series) Never done Shingrix Vaccine(2 of 3) due on 11/14/2013 Colorectal Cancer Screening due on 03/01/2020 Influenza Vaccine(1) due on 02/27/2023 Covid-19 Vaccine(5 - 3-24 season) due on 02/27/2023 Navigation Signature: Carter Owen MA April 28, 2023 10:[address] [facility] 04-28-2023 History of Presen t illness Narrative POPULATION HEALTH NAVIGATION OUTREACH Action/I [facility] NO MYCHART Colorectal Cancer Screening due on 03/01/2020 Influenza Vaccine(1) due on 02/27/2023 Patient Identified by Name and : NO Outreach Outcome/Action Unable to reach patient: Left message Did you use a PCP flex slot to schedule this appointment? N/A Reason for Outreach Care Gap or Scheduling/Wellness visits Payer: Payor: MEDICARE / Plan: MEDICARE A AND B / Product Type: Medicare / Care Gap Reviewed:: Colorectal Cancer Screening Flu Vaccine Reminder: Reminder note to check Health Maintenance for items below Health Maintenance items due: DTaP,Tdap,Td Vaccine(2 - Tdap) due on 08/09/2009 RSV Vaccine(1 - 1-dose 60+ series) Never done Shingrix Vaccine(2 of 3) due on 11/14/2013 Colorectal Cancer Screening due on 03/01/2020 Influenza Vaccine(1) due on 02/27/2023 Covid-19 Vaccine( season) due on 02/27/2023 Navigation Signature: Carter Owen MA April 28, 2023 10:26 AM documented in this encounter [facility] 01-13-2023 Note HNO ID: [id number] Author: Montrell Mandujano LPN Service: ? Author Type: ? Type: Progress Notes Filed: 01/13/2023 10:10 AM Note Text: Scan on 01/12/2023 3:28 PM by ProviderShiela PA-C: Consultation - [facility] 01-13-2023 History of Presen t illness Narrative Scan on 01/12/2023 3:28 PM by Shiela De Los Santos PA-C: Consultation - documented in this encounter [facility] 01-10-2023 Note HNO ID: [id number] Author: Montrell Mandujano LPN Service: ? Author Type: ? Type: Progress Notes Filed: 01/11/2023 1:12 PM Note Text: Scan on 01/10/2023 9:36 AM by Provider, SEAMUS Kuo: Miscellaneous Lab [facility] 11-26-2022 Miscellaneous Notes Spouse (Odalys) calls to request a copy of lab results from 11/12/2022 be placed in mail. Odalys received a copy of her results but not patient's. Printed and placed in mail for delivery to home address per request. Maile Murguia RN documented in this encounter [facility] 11-12-2022 Note HNO ID: [id number] Author: Ramiro Watson PA-C Service: ? 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 Elevated PSA, less than 10 ng/ml 01/01/2015 Erectile dysfunction following radical prostatectomy Essential hypertension, benign 01/12/2007 Generalized anxiety disorder 06/30/2017 Hearing loss, noise-induced 12/26/2014 History of partial nephrectomy 06/30/2017 removal of 1/3 of R kidney Living will in place 10/30/2021 DPA: Odalys () manager intermediate (current) use of aspirin 06/30/2017 Malignant neoplasm of prostate (HCC) 04/2018 PSA=6.24-Stage 3, pT3a, N0, M0, G7, P<10 Medicare annual wellness visit, subsequent 10/24/2020 Medicare Part B: 11/27/2014, Last done: 10/24/2020 Mixed hyperlipidemia 05/14/2005 Rising PSA following treatment for malignant neoplasm of prostate Stage 3a chronic kidney disease (HCC) 06/30/2017 Stenosis of anus and rectum 06/30/2017 Umbilical hernia Unspecified atrial fibrillation (HCC) 06/30/2017 Happened once after surgery 2016. No recurrence or Tx recommended. PAST SURGICAL HISTORY Procedure Laterality Date COLONOSCOPY FLX DX W/COLLJ SPEC WHEN PFRMD 03/01/15 Colonoscopy LAPAROSCOPIC RADICAL NEPHRECTOMY Right 12/17/2016 [facility] PAST SURGICAL HISTORY OF hand surgery ALLERGIES: Adhesive Tape (Rosins), Altace [Ramipril], Crestor [Rosuvastatin Calcium], Simvastatin, and Zetia [Ezetimibe] Medications reviewed: Yes FAMILY HISTORY Problem Relation Age of Onset Coronary Artery Disease Mother CABG Alcohol/Drug Father Heart Father CHF age 56, age 63 None Sister None Sister SOCIAL HISTORY: Social History Tobacco Use Smoking status: Never Smokeless tobacco: Never Substance Use Topics Alcohol use: Yes Comment: socially Drug use: No Mary Ann likes to exercise by walking. He watches his diet for sodium, low fat and low cholesterol most of the time. List of current specialists seen: Urology- Dr. David Dennis End of Live Planning discussed including patients advanced directive wishes: Yes I am willing to follow Mary Ann's advanced directives. Depression Screening 08/10/2018 09/04/2020 10/30/2021 11/12/2022 PHQ-2 Score 0 0 0 0 PHQ-9 Score - 0 - - JERAD-2 Total Score - - - - JERAD-7 Total Score - - - - Depression screening tool completed and reviewed. Based on score and interview, patient is not at risk for depression. Screening tool discussed with patient, and I recommended no further intervention at this time. Functional Ability/Safety Screen 1. Was the patient's timed Up and Go test unsteady or longer than 30 seconds? No 2. Does the patient need help with the phone, transportation, shopping,preparing meals, housework, laundry, medications or managing money? No 3. Does your home have rugs in the hallway, lack of grab bars in the bathroom, lack of handrails on the stairs or have poor lighting? No Hearing Evaluation: hard of hearing and wears hearing aids PHYSICAL EXAM BP 128/80 (BP Site: Left Arm, BP Position: Sitting, BP Cuff Size: Large Adult) Pulse 72 Temp 37 ?C (98.6 ?F) Resp 18 Ht 178 cm (5' 10.08 ) Wt 87.1 kg (192 lb) BMI 27.49 kg/m? Alert and oriented X 3: YES Body mass index is 27.49 kg/m?. Visual acuity: sees Ophthalmology ASSESSMENT/PLAN: 71 year old male The following prevention plan was discussed during the office visit and provided to the patient: See below. Ramiro Watson PA-C Chief Complaint Patient presents with: Medicare Wellness Exam HPI Mary Ann Schroeder is a 71 year old male who presents here today for extensive exam. Patient with hx as below. Denies specific conerns today. Past medical history, appointments, medications, allergies reviewed. 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 [facility] 10-21-2022 Miscellaneous Notes Patient's spouse Odalys notified. Mishel Flores RN Medication refill requested by spouse. Please review and advise. Requested Prescriptions Pending Prescriptions Disp Refills simvastatin (ZOCOR) 20 mg tablet 90 tablet 1 Sig: Take 1 tablet by mouth daily at bedtime. For cholesterols. amLODIPine (NORVASC) 10 mg tablet 90 tablet 1 Sig: Take 1 tablet by mouth once daily. Last encounter with this provider: 11/29/2021 Next appt: 11/12/2022 Allergies: Adhesive Tape (Ashwini* Other: See Comments Altace [Ramipril] Cough Crestor [Rosuvastat* Myalgia Comment:myalgia Simvastatin Myalgia Comment:myalgia Zetia [Ezetimibe] Diarrhea Comment:diarrhea Last 1 Encounter BP Readings: Date: BP: 01/30/2022 176/102 COLORECTAL CANCER SCREENING due on 03/01/2020 COVID-19 VACCINE(4 - Booster for Pfizer series) due on 05/22/2021 ADVANCE DIRECTIVE DISCUSSION due on 06/29/2022 DEPRESSION ASSESSMENT Never done WBC (k/uL) Date Value 10/23/2021 4.96 Hemoglobin (g/dL) Date Value 10/23/2021 14.0 Platelet Count (k/uL) Date Value 10/23/2021 180 Glucose (mg/dL) Date Value 10/30/2021 95 BUN (mg/dL) Date Value 10/30/2021 17 Creatinine (mg/dL) Date Value 10/30/2021 1.39 (H) Sodium (mmol/L) Date Value 10/30/2021 140 Potassium (mmol/L) Date Value 10/30/2021 4.4 Calcium, Total (mg/dL) Date Value 12/13/2021 9.6 Alkaline Phosphatase (U/L) Date Value 10/23/2021 72 Bilirubin, Total (mg/dL) Date Value 10/23/2021 0.5 AST (U/L) Date Value 10/23/2021 25 ALT (U/L) Date Value 10/23/2021 24 Cholesterol, Total (mg/dL) Date Value 10/23/2021 210 (H) Triglyceride (mg/dL) Date Value 10/23/2021 139 Current Outpatient Medications on File Prior to Visit Medication Sig simvastatin (ZOCOR) 20 mg tablet Take 1 tablet by mouth daily at bedtime. For cholesterols. amLODIPine (NORVASC) 10 mg tablet Take 1 tablet by mouth once daily. aspirin, enteric coated (ADULT LOW DOSE ASPIRIN) 81 mg EC tablet Take 1 tablet by mouth once daily. (Patient not taking: Reported on 12/24/2020 ) fluticasone (FLONASE) 50 mcg/actuation nasal spray Use 2 Sprays in each nostril once daily. No current facility-administered medications on file prior to visit. Mishel Flores RN documented in this encounter [facility] 09-17-2022 Note Patient Outreach (NE TNAV) MARY ANN SCHROEDER ([id number]) 1950 M Date Time Provider Department 09/17/22 CARTER OWEN During your visit today, we recorded the following information about you: Carter Owen MA 09/17/2022 3:16 PM Addendum POPULATION HEALTH NAVIGATION OUTREACH Action/ NO ANSWER NO MYCHART LETTER MAILED ANNUAL MEDICARE WELLNESS COLORECTAL CANCER SCREENING due on 03/01/2020 INFLUENZA(1) due on 02/27/2022 MYCHART ACTIVATION Mailed letter 09/18/2022 MM Patient Identified by Name and : NO Outreach Outcome/Action Unable to reach patient: Phone number not valid / voicemail full Letter mailed Did you use a PCP flex slot to schedule this appointment? N/A Reason for Outreach Care Gap or Scheduling/Wellness visits Payer: Payor: MEDICARE / Plan: MEDICARE A AND B / Product Type: Medicare / Care Gap Reviewed:: Annual Wellness visit Colorectal Cancer Screening Flu Vaccine Reminder: Reminder note to check Health Maintenance for items below Health Maintenance items due: COLORECTAL CANCER SCREENING due on 03/01/2020 COVID-19 VACCINE(4 - Booster for Pfizer series) due on 05/22/2021 INFLUENZA(1) due on 02/27/2022 ADVANCE DIRECTIVE DISCUSSION due on 06/29/2022 DEPRESSION ASSESSMENT Never done Navigation Signature: Carter Owen MA September 17, 2022 11:11 AM Allergies As of Date: 09/17/2022 Noted Allergy Reaction ADHESIVE TAPE (ROSINS) 05/13/2017 14 - Other: See Comments ALTACE (RAMIPRIL) 01/12/2007 3 - Cough CRESTOR (ROSUVASTATIN CALCIUM) 04/04/2009 17 - Myalgia Comments: myalgia SIMVASTATIN 04/04/2009 17 - Myalgia Comments: myalgia ZETIA (EZETIMIBE) 07/31/2009 6 - Diarrhea Comments: diarrhea Date Reviewed: 01/30/2022 Reviewed by: Amie Decker APRN.DEPUTY DIRECTOR OF NURSING - Fully Assessed Reason for Visit: Population Health Navigation Outreach [3910] Cmt: JEROME RUBALCAVA PCSA Prescriptions as of 09/18/2022 - simvastatin (ZOCOR) 20 mg tablet Take 1 tablet by mouth daily at bedtime. For cholesterols. - amLODIPine (NORVASC) 10 mg tablet Take 1 tablet by mouth once daily. - aspirin, enteric coated (ADULT LOW DOSE ASPIRIN) 81 mg EC tablet Take 1 tablet by mouth once daily. - fluticasone (FLONASE) 50 mcg/actuation nasal spray Use 2 Sprays in each nostril once daily. Meds Comments as of 12/26/2014: Apple Cider Vinegar Problem List As Of Date 09/17/2022 Noted Resolved Mixed hyperlipidemia [E78.2] 05/14/2005 Actinic keratosis [L57.0] Essential hypertension, benign [I10] 01/12/2007 Arthritis of right elbow [M19.021] 10/11/2012 Hearing loss, noise-induced [H83.3X9] 12/26/2014 Elevated PSA, less than 10 ng/ml [R97.20] 01/01/2015 06/30/2017 Special screening for malignant neoplasms, colo*03/01/2015 03/01/2015 Clear cell adenocarcinoma of kidney (HCC) [C64.*01/12/2017 Acquired absence of kidney [Z90.5] 06/30/2017 Acute posthemorrhagic anemia [D62] 06/30/2017 08/10/2018 Atrial fibrillation with rapid ventricular resp*06/30/2017 08/10/2018 Malignant neoplasm of prostate (HCC) [C61] 06/30/2017 Stage 3a chronic kidney disease (HCC) [N18.31] 06/30/2017 Chronic prostatitis [N41.1] 06/30/2017 06/30/2017 Generalized anxiety disorder [F41.1] 06/30/2017 Hematuria [R31.9] 06/30/2017 06/30/2017 History of partial nephrectomy [Z90.5] 06/30/2017 manager intermediate (current) use of aspirin [Z79.82] 06/30/2017 Retention of urine, unspecified [R33.9] 06/30/2017 06/30/2017 Stenosis of anus and rectum [K62.4] 06/30/2017 Syncope and collapse [R55] 06/30/2017 06/30/2017 Unspecified hydronephrosis [N13.30] 06/30/2017 06/30/2017 Medicare annual wellness visit, subsequent [Z00*10/24/2020 Medication management [Z79.899] 10/07/2021 Advance directive discussed with patient [Z71.8*10/30/2021 Screening for colon cancer [Z12.11] 10/30/2021 Hypercalcemia [E83.52] 10/30/[address] [Z78.9] 10/30/2021 Letter Text Encounter Status:Closed by CARTER OWEN on 09/17/[address] [facility] 09-17-2022 Note HNO ID: [id number] Author: Carter Owen MA Service: ? Author Type: Moving Worker Type: Progress Notes Filed: 09/18/2022 4:04 PM Note Text: POPULATION HEALTH NAVIGATION OUTREACH Action/ NO ANSWER NO MYCHART LETTER MAILED ANNUAL MEDICARE WELLNESS COLORECTAL CANCER SCREENING due on 03/01/2020 INFLUENZA(1) due on 02/27/2022 MYCHART ACTIVATION Mailed letter 09/18/2022 MM Patient Identified by Name and : NO Outreach Outcome/Action Unable to reach patient: Phone number not valid / voicemail full Letter mailed Did you use a PCP flex slot to schedule this appointment? N/A Reason for Outreach Care Gap or Scheduling/Wellness visits Payer: Payor: MEDICARE / Plan: MEDICARE A AND B / Product Type: Medicare / Care Gap Reviewed:: Annual Wellness visit Colorectal Cancer Screening Flu Vaccine Reminder: Reminder note to check Health Maintenance for items below Health Maintenance items due: COLORECTAL CANCER SCREENING due on 03/01/2020 COVID-19 VACCINE(4 - Booster for Pfizer series) due on 05/22/2021 INFLUENZA(1) due on 02/27/2022 ADVANCE DIRECTIVE DISCUSSION due on 06/29/2022 DEPRESSION ASSESSMENT Never done Navigation Signature: Carter Owen MA September 17, 2022 11:[address] [facility] 09-17-2022 History of Presen t illness Narrative POPULATION HEALTH NAVIGATION OUTREACH Action/FYI NO ANSWER NO MYCHART LETTER MAILED ANNUAL MEDICARE WELLNESS COLORECTAL CANCER SCREENING due on 03/01/2020 INFLUENZA(1) due on 02/27/2022 MYCHART ACTIVATION Patient Identified by Name and : NO Outreach Outcome/Action Unable to reach patient: Phone number not valid / voicemail full Letter mailed Did you use a PCP flex slot to schedule this appointment? N/A Reason for Outreach Care Gap or Scheduling/Wellness visits Payer: Payor: MEDICARE / Plan: MEDICARE A AND B / Product Type: Medicare / Care Gap Reviewed:: Annual Wellness visit Colorectal Cancer Screening Flu Vaccine Reminder: Reminder note to check Health Maintenance for items below Health Maintenance items due: COLORECTAL CANCER SCREENING due on 03/01/2020 COVID-19 VACCINE(4 - Booster for Pfizer series) due on 05/22/2021 INFLUENZA(1) due on 02/27/2022 ADVANCE DIRECTIVE DISCUSSION due on 06/29/2022 DEPRESSION ASSESSMENT Never done Navigation Signature: Carter Owen MA September 17, 2022 11:11 AM documented in this encounter [facility] 09-01-2022 Note HNO ID: [id number] Author: Gianna Moreno MA Service: ? Author Type: Moving Worker Type: Progress Notes Filed: 09/01/2022 8:16 PM Note Text: Scan on 08/29/2022 2:16 PM by External Provider: Tim Moreno MA [facility] 09-01-2022 History of Presen t illness Narrative Scan on 08/29/2022 2:16 PM by External Provider: Tim Moreno MA documented in this encounter [facility] 06-26-2022 History of Presen t illness Narrative POPULATION HEALTH NAVIGATION OUTREACH Action/I FAST BUSY NO MYCHART LETTER MAILED ANNUAL MEDICARE WELLNESS COLORECTAL CANCER SCREENING due on 03/01/2020 INFLUENZA(1) due on 02/27/2022 Pt identified by name and : NO Outreach Outcome/Action Unable to reach patient: Phone number not valid / voicemail full Letter mailed Did you use a PCP flex slot to schedule this appointment? N/A Reason for Outreach Care Gap or Scheduling/Wellness visits Payer: Payor: MEDICARE / Plan: MEDICARE A AND B / Product Type: Medicare / Care Gap Reviewed:: Annual Wellness visit Colorectal Cancer Screening Flu vaccine Reminder: Reminder note to check Health Maintenance for items below Health Maintenance items due: COLORECTAL CANCER SCREENING due on 03/01/2020 COVID-19 VACCINE(4 - Booster for Pfizer series) due on 05/22/2021 DEPRESSION ASSESSMENT Never done INFLUENZA(1) due on 02/27/2022 Navigation Signature: Carter Owen MA June 26, 2022 9:23 AM documented in this encounter [facility] 04-11-2022 Miscellaneous Notes The following approved medication requests have been transmitted electronically. Requested Prescriptions Signed Prescriptions Disp Refills simvastatin (ZOCOR) 20 mg tablet 90 tablet 1 Sig: Take 1 tablet by mouth daily at bedtime. For cholesterols. Authorizing Provider: RAMIRO WATSON amLODIPine (NORVASC) 10 mg tablet 90 tablet 1 Sig: Take 1 tablet by mouth once daily. Authorizing Provider: RAMIRO WATSON PA-C Patient has been identified by name and date of : Yes Spouse phones for refill(s): Requested Prescriptions Pending Prescriptions Disp Refills simvastatin (ZOCOR) 20 mg tablet 90 tablet Sig: Take 1 tablet by mouth daily at bedtime. For cholesterols. amLODIPine (NORVASC) 10 mg tablet 90 tablet Sig: Take 1 tablet by mouth once daily. calls to request 90 day prescription for both medications so on same schedule. Pended. Need refills amount filled in. Date of last office visit with pcp: 11/29/2021 Future appt: none Last 2 Encounter Wt Readings: Date: Wt: 01/30/2022 89.4 kg (197 lb) 11/29/2021 88.9 kg (196 lb) Previous labs/tests for medication: Cholesterol: HDL Cholesterol (mg/dL) Date Value 10/23/2021 58 10/19/2020 54 LDL Cholesterol (mg/dL) Date Value 10/23/2021 124 10/19/2020 94 ALT (U/L) Date Value 10/23/2021 24 10/19/2020 15 Non HDL Cholesterol (mg/dL) Date Value 10/23/2021 152 10/19/2020 113 Blood Pressure: BUN (mg/dL) Date Value 10/30/2021 17 10/19/2020 15 Sodium (mmol/L) Date Value 10/30/2021 140 10/19/2020 139 Last 1 Encounter BP Readings: Date: BP: 01/30/2022 176/102 Liver Function: ALT (U/L) Date Value 10/23/2021 24 10/19/2020 15 AST (U/L) Date Value 10/23/2021 25 10/19/2020 19 Please advise. Thank you. Maile Murguia RN documented in this encounter [facility] 04-08-2022 Miscellaneous Notes Patient calls and results and provider message reviewed. Patient reports that he doesn't have a correctional treatment specialist but his only concern was A-fib and he is probably not going to follow up with a correctional treatment specialist for SVT as he has been under some stress and had been doing quite a bit of walking on the trails while he was wearing the monitor that could explain the elevation of the heart rate so he is not concerned right now. Patient declining cardiology consult. Maile Murguia RN TC to patient who is currently golfing and is unavailable. Pts took a message and will have pt return call when available. TERESSA Acuna ----- Message from Amie Decker APRN.DEPUTY DIRECTOR OF NURSING sent at 04/07/2022 4:55 PM EDT ----- monitor worker without finding of afib. It did note 8 episodes of SVT (abnormally fast heart beat) and would like him to follow up with cardiology. If he does not have a correctional treatment specialist I can place a consult. documented in this encounter [facility] 02-24-2022 Miscellaneous Notes Patient notified of results. Iliana Gill MA ----- Message from Amie Decker APRN.DEPUTY DIRECTOR OF NURSING sent at 02/24/2022 9:28 AM EDT ----- Please inform pt that his MRA of both the head and neck do not show any areas of significant stenosis or occlusion. Results are unremarkable. documented in this encounter [facility] 02-19-2022 History of Presen t illness Narrative Radiology Service Progress Note PATIENT NAME: Mary Ann Schroeder DATE OF SERVICE: February 19, 2022 TIME: 8:15 AM PATIENT IDENTITY VERIFICATION COMPLETED USING TWO (2) IDENTIFIERS: Name and Date of confirmed by patient verbally. FALL SCREENING: Has the patient had 2 falls in the last year or 1 fall with injury or currently using an Ambulatory Assistive Device (Walker, Cane, Wheelchair, Crutches, etc.)? No PATIENT GENDER DATA: Male PATIENT RELEVANT IMPLANT DATA REVIEWED: Yes RADIOLOGY DEPARTMENT: MR; Exam(s) Completed: Head: [place] MRA Neck: Carotids MRA, bilateral PERIPHERAL IV DATA: Not applicable SIGNED BY: RT Cal(R) February 19, 2022 8:15 AM documented in this encounter [facility] 01-30-2022 Miscellaneous Notes Faxed the EEG order to [facility] per the request of the patient. # [phone] Requested them to call the patient and schedule. Requested the results to be faxed to [phone]. documented in this encounter [facility] 01-30-2022 History of Presen t illness Narrative Images from the original note were not included. [facility] [place] New Patient visit New Patient Consultation January 30, 2022 HPI: Mr. Schroeder presents today secondary to issues of speech changes. He states that about three years ago he had an episode where he was speaking and different words were coming out than what he was trying to say. About 30-40 minutes later this resolved. Since that time he has had two more episodes. Most recently a month ago at [facility] he was waiting for his at [facility]. He began to text his and could get his text to make sense. Could not figure out how to fix it. About 1/2 hour later this resolved. Denies associated weakness, vision changes, n/t. Able to understand what people were saying to him. Denies headaches. States memory has not been great but this is usually just names and faces. Over the past five years he has had prostate cancer, a tumor on his kidney with partial removal, PSA still rising. Had 39 radiation treatments. Hx of high blood pressure; takes medication but states it is always high in the office. States he checks it at home and it is usually WNL. Usually 115/60's. Takes medication for cholesterol. Recently restarted taking 81mg ASA. Denies hx of DM. Hx of couple episodes of afib. States this was after surgery. States he has had a couple episodes over the years of feeling like his heart is fluttering. Last EKG was completed at [facility] after surgery in 2016. Also had an echo after one episode of afib (at least five years ago). Reports difficulty sleeping. Will toss and turn. Started after received hormone injections. He does snore. Can gasp for air if laying on his back; if laying on his side he does not. Denies AM dry mouth. Denies daytime fatigue. Denies hx of stroke or seizure. Mother with hx of multiple strokes. Walks three miles every other day. Reviewed MRI results and images with patient. 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 Elevated PSA, less than 10 ng/ml 01/01/2015 Erectile dysfunction following radical prostatectomy Essential hypertension, benign 01/12/2007 Generalized anxiety disorder 06/30/2017 Hearing loss, noise-induced 12/26/2014 History of partial nephrectomy 06/30/2017 removal of 1/3 of R kidney Living will in place 10/30/2021 DPA: Odalys () manager intermediate (current) use of aspirin 06/30/2017 Malignant neoplasm of prostate (HCC) 04/2018 PSA=6.24-Stage 3, pT3a, N0, M0, G7, P<10 Medicare annual wellness visit, subsequent 10/24/2020 Medicare Part B: 11/27/2014, Last done: 10/24/2020 Mixed hyperlipidemia 05/14/2005 Rising PSA following treatment for malignant neoplasm of prostate Stage 3a chronic kidney disease (HCC) 06/30/2017 Stenosis of anus and rectum 06/30/2017 Umbilical hernia Unspecified atrial fibrillation (HCC) 06/30/2017 Happened once after surgery 2016. No recurrence or Tx recommended. PAST SURGICAL HISTORY Procedure Laterality Date COLONOSCOPY FLX DX W/COLLJ SPEC WHEN PFRMD 03/01/15 Colonoscopy LAPAROSCOPIC RADICAL NEPHRECTOMY Right 12/17/2016 [facility] PAST SURGICAL HISTORY OF hand surgery Current Outpatient Medications on File Prior to Visit Medication Sig simvastatin (ZOCOR) 20 mg tablet Take 1 tablet by mouth daily at bedtime. For cholesterols. amLODIPine (NORVASC) 10 mg tablet Take 1 tablet by mouth once daily. aspirin, enteric coated (ADULT LOW DOSE ASPIRIN) 81 mg EC tablet Take 1 tablet by mouth once daily. (Patient not taking: Reported on 12/24/2020 ) fluticasone (FLONASE) 50 mcg/actuation nasal spray Use 2 Sprays in each nostril once daily. No current facility-administered medications on file prior to visit. Social History Tobacco Use Smoking status: Never Smoker Smokeless tobacco: Never Used Substance Use Topics Alcohol use: Yes Comment: socially Drug use: No ALLERGIES Allergen Reactions Adhesive Tape (Ashwini* Other: See Comments Altace [Ramipril] Cough Crestor [Rosuvastat* Myalgia myalgia Simvastatin Myalgia myalgia Zetia [Ezetimibe] Diarrhea diarrhea Review of Systems: Constitutional: denies fever, weight loss, loss of appetite ENT: Denies + loss of hearing (bilateral hearing aids), vertigo Vision: denies blurring vison, double vision/diplopia Dermatologic: denies rash Cardiopulmonary: denies chest pain, palpitations Respiratory: denies shortness of breath GI: denies recent nausea, vomiting, diarrhea, constipation : denies incontinence Psych: denies depression, + anxiety Sleep: + issues with sleeping Heme: denies easy bruising/bleeding Musculoskeletal: denies weakness Back/spine: denies + low back (has seen chiro) or + cervical pains Neuro: denies tremors, loss of feeling, dizziness, seizure, blackout, paresthesia, facial paresthesia, facial weakness, + difficulty in speech, slurring of words, dysarthria, dysphagia, memory loss, headache Physical Exam: 01/30/22 0804 BP: 176/102 Pulse: 70 Resp: 18 Temp: 36.8 C (98.2 F) SpO2: 97% Weight: 89.4 kg (197 lb) Patient is alert and in no distress. Dress is appropriate. Mood is appropriate Breathing appears regular and unstressed Neurologic examination: Date: January 30, 2022; President: Rosalie Cognitively intact. No deficits. No formal MMSE performed. CN: Pupils equal and reactive to light, extraocular movements intact with no nystagmus, face is symmetric with no facial droop, hearing intact bilaterally, symmetric evaluation of the soft palate, tongue is midline with no deviation, shoulder shrug is symmetric. Motor exam shows 5/5 strength symmetric through the upper and lower extremities in all groups tested. Sensory intact to light touch in all extremities. Vibratory sensation is intact and symmetric all extremities. Deep tendon reflexes are symmetric at the biceps, brachioradialis, triceps, patella, and achilles bilaterally. Negative Avery's bilaterally. Coordination: No dysmetria on finger to nose. No tremors noted. No drift seen. Gait normal in stance and pattern. Tandem with mild imbalance. Negative Romberg. Labs/studies: MRI Report MRI BRAIN WO/W IVCON Exam End: 12/11/2021 1:53 PM (Final result) Narrative: * * *Final Report* * * DATE OF EXAM: Dec 11 2021 1:53PM ANNE Gandhi5 - MRI BRAIN WO/W IVCON / PROCEDURE REASON: Dysphasia * * * * Physician Interpretation * * * * EXAMINATION: MRI BRAIN WO/W IVCON CLINICAL HISTORY: Dysphasia upon further review of the electronic medical record, Patient reports multiple episodes of aphasia and mental status changes that subsequently resolve.. need MRI to rule out prior stroke or tumor. TECHNIQUE: Routine brain MRI protocol without and with contrast including diffusion images. MQ: [id number] Contrast: 18 mL Dotarem IV COMPARISON: None. RESULT: Localizer images: No additional findings. Acute Change: There is no evidence of restricted diffusion to suggest an acute infarct. Hemorrhage: No evidence of prior parenchymal hemorrhage on the gradient echo images. Mass Lesion/ Mass Effect: No evidence of an intracranial mass or extra-axial fluid collection. No abnormal parenchymal or leptomeningeal enhancement is noted following contrast administration. No significant mass effect. Chronic Change: Scattered patchy areas of increased T2 and FLAIR signal are present in the supratentorial white matter which is a nonspecific finding but likely represents mild chronic microvascular ischemia. Parenchyma: There is mild generalized parenchymal volume loss. Ventricles: Ventriculomegaly corresponds to the degree of parenchymal volume loss. Skull Base: Hypothalamic and pituitary region are grossly normal. Craniocervical junction is normal. No significant marrow replacement process. Vasculature: Major intracranial arterial structures, and dural venous sinuses show typical flow void, suggesting patency by spin echo criteria. Typical enhancement of major cortical draining veins, deep venous structures, and dural venous sinuses. Usual configuration of left transverse sinus. On the right, predominantly venous drainage is through an accessory occipital sinus. The vein of Perri appears to drain into a very small right transverse sinus near the usual location of the sigmoid sinus. Other: Minimal mucosal thickening along the medial-posterior wall of the right maxillary antrum, likely small mucosal polyp. Paranasal sinus chambers are otherwise clear. Mastoid air cells and middle ear cavities are clear. Orbits are unremarkable. Impression: IMPRESSION: No acute territorial infarct, intracranial hemorrhage, or evidence of intracranial mass. Chronic senescent-related changes, as detailed. Normal variant venous anatomy as noted. No evidence for thrombosis or other obstruction. Under Baster: PSCB Transcribe Date/Time: Dec 11 2021 1:58P Dictated by : RANJAN ALFARO MD This examination was interpreted and the report reviewed and electronically signed by: DOUGIE HAGAN MD on Dec 11 2021 2:28PM EST Complete Results Component Latest Ref Rng & Units 10/23/2021 12/13/2021 Protein, Total 6.3 - 8.0 g/dL 7.3 Albumin 3.9 - 4.9 g/dL 4.6 Calcium 8.5 - 10.2 mg/dL 10.5 (H) 9.6 Bilirubin, Total 0.2 - 1.3 mg/dL 0.5 Alkaline Phosphatase 38 - 113 U/L 72 AST 14 - 40 U/L 25 ALT 10 - 54 U/L 24 Glucose 74 - 99 mg/dL 99 BUN 9 - 24 mg/dL 16 Creatinine 0.73 - 1.22 mg/dL 1.17 Sodium 136 - 144 mmol/L 140 Potassium 3.7 - 5.1 mmol/L 5.2 (H) Chloride 97 - 105 mmol/L 102 CO2 22 - 30 mmol/L 27 Anion Gap 9 - 18 mmol/L 11 eGFR >=60 mL/min/1.73m 67 WBC 3.70 - 11.00 k/uL 4.96 RBC 4.20 - 6.00 m/uL 4.16 (L) Hemoglobin 13.0 - 17.0 g/dL 14.0 Hematocrit 39.0 - 51.0 % 39.6 MCV 80.0 - 100.0 fL 95.2 MCH 26.0 - 34.0 pg 33.7 MCHC 30.5 - 36.0 g/dL 35.4 RDW-CV 11.5 - 15.0 % 12.7 Platelet Count 150 - 400 k/uL 180 MPV 9.0 - 12.7 fL 11.1 Absolute nRBC <0.01 k/uL <0.01 Cholesterol, Total <200 mg/dL 210 (H) Triglyceride <150 mg/dL 139 HDL Cholesterol >39 mg/dL 58 Non HDL Cholesterol <130 mg/dL 152 (H) Fasting Time hrs 12 VLDL Cholesterol <30 mg/dL 28 TC:HDL Ratio <5.10 3.62 LDL Cholesterol <100 mg/dL 124 (H) LDL:HDL Ratio <2.54 2.14 PTH, Intact 15 - 65 pg/mL 49 Assessment/Plan: R47.9 Transient speech disturbance (primary encounter diagnosis) Comment: Patient presenting today for transient episode of expressive aphasia. Pt reports three episodes of difficulty with speech starting three years ago with most recent episode occurring in October. Episodes last roughly 45 minutes and are not associated with other neurological symptoms such as weakness, sensation disturbance, loss of vision, MOODY. Notable hx of CKD 3, prostate CA, hld, htn, afib, and anxiety. At time of past events he was not taking ASA and unsure if he started ASA before or after event in October. MRI of brain WO/W previously completed without evidence of stroke, mass, or hemorrhage. At this time concern that episodes are suggestive of TIA verses seizure activity and will proceed with further workup as follows: -MRA brain/carotid (given hx of CKD 3) to evaluate for stenosis or occlusion. -EEG to rule out seizure activity. -Outpatient quality assurance monitor to assess for underlying abnormal heart rhythm such as afib. Note, pt has hx of afib following surgery but reports no further episodes since that time of which he is aware. -Continue ASA 81mg for stroke prevention. -Continue simvastatin for cholesterol management. -Recommend continuing to follow with PCP for BP and hld management; BP goal <140/90 and BG <140. As BP was elevated in office today would recommend monitoring at home and if it remains elevated follow up with PCP. -Reviewed red flag symptoms and when to return to ED. Pt to follow up after imaging is complete. Office Visit on 01/30/22 MRA BRAIN WO IVCON MRA CAROTID WO IVCON OUTSIDE VENDOR CARDIAC OUTPATIENT EXTENDED RHYTHM RECORDING (WITHOUT TELEMETRY) EPIL EEG ROUTINE Amie Decker APRN.ESTEFANIA I spent a total of 60 minutes on the date of the service which included preparing to see the patient, [id number] patient care, completing clinical documentation, obtaining and/or reviewing separately obtained history, performing a medically appropriate examination, counseling and educating the patient/family/caregiver and ordering medications, tests, or procedures. documented in this encounter [facility] 01-06-2022 Miscellaneous Notes The following approved medication requests have been transmitted electronically. Signed Prescriptions Disp Refills simvastatin (ZOCOR) 20 mg tablet 90 tablet 0 Sig: Take 1 tablet by mouth daily at bedtime. For cholesterols. MICHAELA: No Authorizing Provider: RICHIE SWIFT MD Patient has been identified by name and date of : Yes Spouse phones for refill(s): Pending Prescriptions Disp Refills SIMVASTATIN 20 MG TABLET 90 tablet 1 Sig: Take 1 tablet by mouth daily at bedtime. For cholesterols. MICHAELA: No Date of last office visit in primary care: 11/29/21 Future visit: none Last 2 Encounter Wt Readings: Date: Wt: 11/29/2021 88.9 kg (196 lb) 10/30/2021 88.5 kg (195 lb) Previous labs/tests for medication: Blood Pressure: BUN (mg/dL) Date Value 10/30/2021 17 10/19/2020 15 Sodium (mmol/L) Date Value 10/30/2021 140 10/19/2020 139 Last 1 Encounter BP Readings: Date: BP: 11/29/2021 116/82 Please advise. Thank you. Ree Morris RN documented in this encounter [facility] 12-17-2021 Miscellaneous Notes Phoned patient. Spoke with and given provider's message below with verbalized understanding. states she will have patient return call if any questions. Let patient know calcium tests were normal. documented in this encounter [facility] 12-12-2021 Miscellaneous Notes Patient Odalys calling back wanted to ask for results again so she could write down results on paper so she can go over with her . (Odalys) calls in and provider message given. Odalys verbalizes understanding and will discuss with patient. Patient to call back and schedule consult appointment with neurology. Maile Murguia RN Left message for pt to contact office. .Montrell Mandujano LPN Let patient kow that MRI overall looks okay. Some chronic microvascular changes which isn't necessarily abnormal. We will want to make sure we keep his BP under control. I would still like an opinion from neuro. Ramiro Watson PA-C documented in this encounter [facility] 12-11-2021 History of Presen t illness Narrative Radiology Service Progress Note DATE OF SERVICE: December 11, 2021 TIME: 1:28 PM PATIENT IDENTITY VERIFICATION COMPLETED USING TWO (2) STANDARD IDENTIFIERS: Name and Date of confirmed by patient verbally. FALL SCREENING: Has the patient had 2 falls in the last year or 1 fall with injury or currently using an Ambulatory Assistive Device (Walker, Cane, Wheelchair, Crutches, etc.)? No PATIENT GENDER DATA: Male PATIENT RELEVANT IMPLANT DATA REVIEWED: Yes ALLERGIES: Reviewed and unchanged CONTRAST ALLERGY: NO. EXAM: MRI - CONTRAST TYPE: GROUP II PERIPHERAL IV DATA: Ambulatory: A peripheral IV was started in the Right antecubital site with a Angio cath: 22 gauge. RADIOLOGY DEPARTMENT: MR; Exam(s) Completed: Head: Routine Brain SIGNATURE: RT Cal(R) PATIENT NAME: Mary Ann Schroeder DATE: December 11, 2021 TIME: 1:28 PM documented in this encounter [facility] 11-29-2021 History of Presen t illness Narrative Chief Complaint Patient presents with: memory issues HPI Mary Ann Schroeder is a 70 year old male who presents here today for Above Complaints.. Patient reports that he has had 2-3 episodes of aphasia and memory troubles over the past 3-4 years. Last Thursday was the most recent episode. He was trying to text his that he had to move his vehicle. The text he typed did not make sense at all. He knew it didn't make sense but also didn't know how to fix it. No weakness. No slurred speech but words just don't come out right. He will say words that he isn't trying to say. Each episode will last 20-45min at the most. Denies cp or sob, no lightheadedness, no headaches, no blurred vision no LOC, no seizures. Past medical history, appointments, medications, allergies reviewed. 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 Elevated PSA, less than 10 ng/ml 01/01/2015 Erectile dysfunction following radical prostatectomy Essential hypertension, benign 01/12/2007 Generalized anxiety disorder 06/30/2017 Hearing loss, noise-induced 12/26/2014 History of partial nephrectomy 06/30/2017 removal of 1/3 of R kidney Living will in place 10/30/2021 DPA: Odalys () [facility] (current) use of aspirin 06/30/2017 Malignant neoplasm of prostate (HCC) 04/2018 PSA=6.24-Stage 3, pT3a, N0, M0, G7, P<10 Medicare annual wellness visit, subsequent 10/24/2020 Medicare Part B: 11/27/2014, Last done: 10/24/2020 Mixed hyperlipidemia 05/14/2005 Rising PSA following treatment for malignant neoplasm of prostate Stage 3a chronic kidney disease (HCC) 06/30/2017 Stenosis of anus and rectum 06/30/2017 Umbilical hernia Unspecified atrial fibrillation (HCC) 06/30/2017 Happened once after surgery 2016. No recurrence or Tx recommended. Previous Surgical History PAST SURGICAL HISTORY Procedure Laterality Date COLONOSCOPY FLX DX W/COLLJ SPEC WHEN PFRMD 03/01/15 Colonoscopy LAPAROSCOPIC RADICAL NEPHRECTOMY Right 12/17/2016 [facility] PAST SURGICAL HISTORY OF hand surgery Family History FAMILY HISTORY Problem Relation Age of Onset Coronary Artery Disease Mother CABG Alcohol/Drug Father Heart Father CHF age 56, age 63 None Sister None Sister Patient Allergies ALLERGIES Allergen Reactions Adhesive Tape (Ashwini* Other: See Comments Altace [Ramipril] Cough Crestor [Rosuvastat* Myalgia myalgia Simvastatin Myalgia myalgia Zetia [Ezetimibe] Diarrhea diarrhea Current Medications Current Outpatient Medications on File Prior to Visit Medication Sig amLODIPine (NORVASC) 10 mg tablet Take 1 tablet by mouth once daily. simvastatin (ZOCOR) 20 mg tablet Take 1 tablet by mouth daily at bedtime. For cholesterols. fluticasone (FLONASE) 50 mcg/actuation nasal spray Use 2 Sprays in each nostril once daily. aspirin, enteric coated (ADULT LOW DOSE ASPIRIN) 81 mg EC tablet Take 1 tablet by mouth once daily. (Patient not taking: Reported on 12/24/2020 ) No current facility-administered medications on file prior to visit. Social History Social History Tobacco Use Smoking status: Never Smoker Smokeless tobacco: Never Used Substance Use Topics Alcohol use: Yes Comment: socially Drug use: No Review of Symptoms REVIEW OF SYSTEMS see hpi EXAM: BP 146/86 (BP Site: Left Arm, BP Position: Sitting, BP Cuff Size: Large Adult) Pulse 84 Temp 36.7 C (98.1 F) Resp 18 Wt 88.9 kg (196 lb) BMI 28.12 kg/m General Appearance: Well appearing, alert, in no acute distress, well-hydrated, well nourished.. Neck: Supple, no adenopathy; thyroid symmetric, normal size, no bruits. Lungs: Lungs clear to auscultation. No wheezing, rhonchi, rales.. Heart: RRR without murmur, gallop, or rubs. No ectopy. Neurologic: Negative findings: speech normal, mental status intact, cranial nerves 2-12 intact, gait, including heel, toe, and tandem walking normal, Romberg negative, muscle strength normal, rapid alternating movements normal, finger to nose normal, proprioception normal, reflexes normal and symmetric. Health Maintenance List COVID-19 VACCINE(4 - Booster for Pfizer series) due on 07/27/2021 COLORECTAL CANCER SCREENING due on 03/29/2022 DTAP,TDAP,TD(2 - Tdap) due on 10/30/2022 SHINGRIX VACCINE(2 of 3) due on 10/30/2022 INFLUENZA(Season Ended) due on 02/27/2022 HEMOGLOBIN/HEMATOCRIT due on 10/23/2022 ANNUAL PCP TEAM CHRONIC DISEASE VISIT due on 10/30/2022 SERUM CREATININE due on 10/30/2022 DEPRESSION SCREENING due on 10/30/2022 BP CONTROLLED (<130/80) due on 11/04/2022 DIABETES SCREEN due on 10/30/2024 LIPID SCREEN due on 10/23/2026 ADVANCE DIRECTIVE DISCUSSION Completed HEPATITIS C SCREENING Completed PNEUMOCOCCAL: 65+ Completed Data reviewed ASSESSMENT/PLAN: 1. Aphasia - ICD9: 784.3, ICD10: R47.01 (primary diagnosis) Unclear etiology. Neuro exam normal Check MRI and set up with neuro - CONSULT TO NEUROLOGY 2. Dysphasia - ICD9: 784.59, ICD10: R47.02 As above - MRI BRAIN WO/W IVCON - CONSULT TO NEUROLOGY 3. Confusion - ICD9: 298.9, ICD10: R41.0 As above - CONSULT TO NEUROLOGY Ramiro Watson PA-C documented in this encounter [facility] 11-28-2021 Miscellaneous Notes Agree. (Odalys) calls to report 3 episodes over the past three years where patient has had garbled speech with confusion that lasts 10-15 minutes. reports most recent episode was on . Patient text a message and the message didn't make any sense. Patient read the message, knew it didn't make sense, but didn't know how to correct it. reports no chest pain sob, numbness to one side of the body, headache, dizziness, or changes in vision. is wondering if patient hasn't had a few mini-strokes and questioning a brain scan. Appointment scheduled but told if patient presents with those symptoms again he needs to be evaluated at ED at the time of the symptoms as it could be a mini stroke but could be something more that needs evaluated immediately. voices understanding and will take to ED if symptoms occur again. Maile Murguia RN documented in this encounter [facility] 11-04-2021 Miscellaneous Notes Pt's notified of same. Montrell Mandujano LPN Let know BP's look good. No changes needed. BP 116/82 Patient's calls to report patient's blood pressures. Blood pressures were taken 1-2 hours after patient had awaken. - 122/73 11/01/2021- 113/75 11/02/2021- 114/75 11/03/2021- 119/81 11/04/2021- 116/82 Please review and advise, Jaqueline Mera RN documented in this encounter [facility] 10-31-2021 Miscellaneous Notes Patient notified and voiced understanding. Gianna Moreno MA Let patient know the repeat lab showed potassium was ok. The calcium was improved but still elevated. The hormone that controls the calcium level was ok. I want to just repeat the calcium level and parathyroid level in a month. Orders placed. documented in this encounter [facility] 10-30-2021 Instructions Richie Swift MD - 10/30/2021 2:16 PM EDT Check with local pharmacy to see if you can get the shingrix vaccine for the prevention of shingles. Check Blood pressure for a few days and call and let Dr. Swift know. Bring in copies of living will and power of workers compensation attorney for health care. 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 Elevated PSA, less than 10 ng/ml 01/01/2015 Erectile dysfunction following radical prostatectomy Hearing loss, noise-induced 12/26/2014 History of partial nephrectomy 06/30/2017 removal of 1/3 of R kidney Malignant neoplasm of prostate (HCC) 04/2018 PSA=6.24-Stage 3, pT3a, N0, M0, G7, P<10 Rising PSA following treatment for malignant neoplasm of prostate Umbilical hernia PAST SURGICAL HISTORY PAST SURGICAL HISTORY Procedure Laterality Date COLONOSCOP W/ OR W/O BRSH SPEC 03/01/15 Colonoscopy LAPAROSCOPIC RADICAL NEPHRECTOMY Right 12/17/2016 [facility] PAST SURGICAL HISTORY OF hand surgery ALLERGIES: Adhesive Tape (Rosins), Altace [Ramipril], Crestor [Rosuvastatin Calcium], Simvastatin, and Zetia [Ezetimibe] Medications reviewed: Yes FAMILY HISTORY FAMILY HISTORY Problem Relation Age of Onset Coronary Artery Disease Mother CABG Alcohol/Drug Father Heart Father CHF age 56, age 63 None Sister None Sister SOCIAL HISTORY: SOCIAL HISTORY Social History Tobacco Use Smoking status: Never Smoker Smokeless tobacco: Never Used Substance Use Topics Alcohol use: Yes Comment: socially Drug use: No Mary Ann works out regularly 3-4 times per week with walking 3 miles. He watches his diet for sodium, low fat and low cholesterol most of the time. List of current specialists seen: Dr. Nuñez (Urology), [facility] End of Live Planning discussed including patients advanced directive wishes: Yes I am willing to follow Mary Ann's advanced directives. PHQ-2 / Depression screen Depression Screening 06/30/2017 08/10/2018 09/04/2020 10/30/2021 PHQ-2 Score 0 0 0 0 PHQ-9 Score - - 0 - JERAD-2 Total Score - - - - JERAD-7 Total Score - - - - Depression screening tool completed and reviewed. Based on score and interview, patient is not at risk for depression. Screening tool discussed with patient, and I recommended no further intervention at this time. Functional Ability/Safety Screen 1. Was the patient's timed Up and Go test unsteady or longer than 30 seconds? No 2. Does the patient need help with the phone, transportation, shopping,preparing meals, housework, laundry, medications or managing money? No 3. Does your home have rugs in the hallway, lack of grab bars in the bathroom, lack of handrails on the stairs or have poor lighting? No Hearing Evaluation: hard of hearing and wears hearing aids PHYSICAL EXAM BP 142/78 (BP Site: Left Arm, BP Position: Sitting, BP Cuff Size: Regular Adult) Pulse 72 Resp 14 Ht 177.8 cm (5' 10 ) Wt 88.5 kg (195 lb) BMI 27.98 kg/m BP 144/92 Pulse 72 Resp 14 Ht 177.8 cm (5' 10 ) Wt 88.5 kg (195 lb) BMI 27.98 kg/m Alert and oriented X 3: YES Body mass index is 27.98 kg/m . Visual acuity: seeing Optho See below ASSESSMENT/PLAN: 70 year old male The following prevention plan was discussed during the office visit and provided to the patient: See below Richie Swift MD Chief Complaint Patient presents with: Physical HPI Mary Ann Schroeder is a 70 year old male who presents here today for extensive exam. Concerns: None Doing well Past medical history, appointments, medications, allergies reviewed. 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 Elevated PSA, less than 10 ng/ml 01/01/2015 Erectile dysfunction following radical prostatectomy Essential hypertension, benign 01/12/2007 Generalized anxiety disorder 06/30/2017 Hearing loss, noise-induced 12/26/2014 History of partial nephrectomy 06/30/2017 removal of 1/3 of R kidney manager intermediate (current) use of aspirin 06/30/2017 Malignant neoplasm of prostate (HCC) 04/2018 PSA=6.24-Stage 3, pT3a, N0, M0, G7, P<10 Medicare annual wellness visit, subsequent 10/24/2020 Medicare Part B: 11/27/2014, Last done: 10/24/2020 Mixed hyperlipidemia 05/14/2005 Rising PSA following treatment for malignant neoplasm of prostate Stage 3a chronic kidney disease (HCC) 06/30/2017 Stenosis of anus and rectum 06/30/2017 Umbilical hernia Unspecified atrial fibrillation (HCC) 06/30/2017 Happened once after surgery 2016. No recurrence or Tx recommended. Previous Surgical History PAST SURGICAL HISTORY Procedure Laterality Date COLONOSCOP W/ OR W/O [facility] SPEC 03/01/15 Colonoscopy LAPAROSCOPIC RADICAL NEPHRECTOMY Right 12/17/2016 [facility] PAST SURGICAL HISTORY OF hand surgery Family History FAMILY HISTORY Problem Relation Age of Onset Coronary Artery Disease Mother CABG Alcohol/Drug Father Heart Father CHF age 56, age 63 None Sister None Sister Patient Allergies ALLERGIES Allergen Reactions Adhesive Tape (Ashwini* Other: See Comments Altace [Ramipril] Cough Crestor [Rosuvastat* Myalgia myalgia Simvastatin Myalgia myalgia Zetia [Ezetimibe] Diarrhea diarrhea Current Medications Current Outpatient Medications on File Prior to Visit Medication Sig amLODIPine (NORVASC) 10 mg tablet Take 1 tablet by mouth once daily. simvastatin (ZOCOR) 20 mg tablet Take 1 tablet by mouth daily at bedtime. For cholesterols. fluticasone (FLONASE) 50 mcg/actuation nasal spray Use 2 Sprays in each nostril once daily. aspirin, enteric coated (ADULT LOW DOSE ASPIRIN) 81 mg EC tablet Take 1 tablet by mouth once daily. (Patient not taking: Reported on 12/24/2020 ) No current facility-administered medications on file prior to visit. Social History Social History Tobacco Use Smoking status: Never Smoker Smokeless tobacco: Never Used Substance Use Topics Alcohol use: Yes Comment: socially Drug use: No Review of Symptoms REVIEW OF SYSTEMS GENERAL: No weight loss, malaise or fevers HEENT: Negative for frequent or significant headaches, No changes in vision, no nose bleeds or other nasal problems. Hearing is poor and will be able to get new hearing aids in December. NECK: Negative for lumps, goiter, pain and significant neck swelling RESPIRATORY: Negative for cough, hemoptysis, wheezing, COPD, dyspnea or shortness of breath CARDIOVASCULAR: Negative for chest pain, leg swelling, hypertension, CHF or palpitations GI: No nausea, vomiting, or diarrhea and No heartburn or reflux symptoms : No history of dysuria, frequency or recent blood. MUSCULOSKELETAL: Negative for joint pain or swelling, back pain or muscle pain SKIN: Negative for lesions, rash, and itching PSYCH: Negative for sleep disturbance, mood disorder and recent psychosocial stressors HEMATOLOGY/LYMPHOLOGY: Negative for prolonged bleeding, bruising easily or swollen nodes ENDOCRINE: Negative for cold or heat intolerance, polyuria, polydipsia and goiter NEURO: No history of headaches, syncope, paralysis, seizures or tremors EXAM: BP 142/78 (BP Site: Left Arm, BP Position: Sitting, BP Cuff Size: Regular Adult) Pulse 72 Resp 14 Ht 177.8 cm (5' 10 ) Wt 88.5 kg (195 lb) BMI 27.98 kg/m BP 144/92 Pulse 72 Resp 14 Ht 177.8 cm (5' 10 ) Wt 88.5 kg (195 lb) BMI 27.98 kg/m Last 5 Encounter Wt Readings: Date: Wt: 10/30/2021 88.5 kg (195 lb) 12/24/2020 85.3 kg (188 lb) 10/24/2020 84.4 kg (186 lb) 09/04/2020 86.6 kg (191 lb) 09/05/2019 90.3 kg (199 lb) General Appearance: Well appearing, alert, in no acute distress, well-hydrated, well nourished.. Skin: seeing derm Head: Normocephalic, no masses, lesions, tenderness or abnormalities. Eyes: Anicteric sclera. Pupils are equally round and reactive to light. Extraocular movements are intact. . Ears: External ears, TM's normal, canals clear. Neck: Supple, no adenopathy; thyroid symmetric, normal size, no bruits. Lungs: Lungs clear to auscultation. No wheezing, rhonchi, rales.. Heart: RRR without murmur, gallop, or rubs. No ectopy. Abdomen: Normal abdominal exam, Abdomen soft, non-tender. Bowel sounds normal. No masses, organomegaly. Extremities: No deformities, edema, skin discoloration, Musculoskeletal: Muscular strength intact, No joint swelling, deformity, or tenderness. Peripheral Pulses: Normal. Neurologic: Gait normal. Reflexes normal and symmetric. Sensation grossly intact.. Genitalia: Normal, Penis normal. No urethral discharge. Scrotum normal to palpation. No hernia.. Health Maintenance List DTAP,TDAP,TD(2 - Tdap) due on 08/09/2009 SHINGRIX VACCINE(2 of 3) due on 11/14/2013 COLORECTAL CANCER SCREENING due on 03/01/2020 ADVANCE DIRECTIVE DISCUSSION Never done DEPRESSION SCREENING due on 09/04/2021 ANNUAL PCP TEAM CHRONIC DISEASE VISIT due on 12/24/2021 BP CONTROLLED (<130/80) due on 12/27/2021 INFLUENZA(Season Ended) due on 02/27/2022 SERUM CREATININE due on 10/23/2022 DIABETES SCREEN due on 10/23/2024 LIPID SCREEN due on 10/23/2026 HEPATITIS C SCREENING Completed PNEUMOVAX AGE 65 AND OVER WITH 5YR LOOKBACK Completed COVID-19 VACCINE Completed MENINGOCOCCAL CONJUGATE Aged Out Data reviewed Component Latest Ref Rng & Units 10/19/2020 10/23/2021 Protein, Total 6.3 - 8.0 g/dL 7.4 7.3 Albumin 3.9 - 4.9 g/dL 4.8 4.6 Calcium 8.5 - 10.2 mg/dL 9.9 10.5 (H) Bilirubin, Total 0.2 - 1.3 mg/dL 0.5 0.5 Alkaline Phosphatase 38 - 113 U/L 78 72 AST 14 - 40 U/L 19 25 Glucose 74 - 99 mg/dL 91 99 BUN 9 - 24 mg/dL 15 16 Creatinine 0.73 - 1.22 mg/dL 1.27 (H) 1.17 Sodium 136 - 144 mmol/L 139 140 Potassium 3.7 - 5.1 mmol/L 4.5 5.2 (H) Chloride 97 - 105 mmol/L 100 102 CO2 22 - 30 mmol/L 28 27 Anion Gap 9 - 18 mmol/L 11 11 ALT 10 - 54 U/L 15 24 eGFR- >60 eGFR-All Other Races . 56 eGFR >=60 mL/min/1.73m 67 Color Yellow Light Yellow Clarity Clear Clear Glucose, Urine Negative Negative Bilirubin, Urine Negative Negative Ketones, Urine Negative Negative Specific [place], Ur 1.005 - 1.030 1.016 Hemoglobin/Blood,Ur Negative Negative pH, Urine 5.0 - 8.0 7.0 Protein, Urine Negative Negative Urobilinogen Negative Negative Nitrites Negative Negative Leukest Negative Negative WBC, Urine 0-5 /HPF 0-5 /HPF RBC, Urine 0-3 /HPF 0-3 /HPF Epithelial Cells /HPF Few WBC 3.70 - 11.00 k/uL 5.14 4.96 RBC 4.20 - 6.00 m/uL 4.70 4.16 (L) Hemoglobin 13.0 - 17.0 g/dL 15.1 14.0 Hematocrit 39.0 - 51.0 % 45.0 39.6 MCV 80.0 - 100.0 fL 95.7 95.2 MCH 26.0 - 34.0 pg 32.1 33.7 MCHC 30.5 - 36.0 g/dL 33.6 35.4 RDW-CV 11.5 - 15.0 % 12.5 12.7 Platelet Count 150 - 400 k/uL 214 180 MPV 9.0 - 12.7 fL 10.7 11.1 Absolute nRBC <0.01 k/uL <0.01 <0.01 Cholesterol, Total <200 mg/dL 167 210 (H) Triglyceride <150 mg/dL 94 139 HDL Cholesterol >39 mg/dL 54 58 LDL Cholesterol <100 mg/dL 94 124 (H) Non HDL Cholesterol <130 mg/dL 113 152 (H) Fasting Time hrs 14 12 VLDL Cholesterol <30 mg/dL 19 28 TC:HDL Ratio <5.10 3.09 3.62 LDL:HDL Ratio <2.54 1.74 2.14 A/P ASSESSMENT/PLAN: 1. Medicare annual wellness visit, subsequent - ICD9: V70.0, ICD10: Z00.00 (primary diagnosis) - Counseled on healthy diet and regular exercise - Follow up for annual exam in one year - Discussed shingrix 2. Essential hypertension, benign - ICD9: 401.1, ICD10: I10 - suboptimal control - Continue current medication(s) - Recommended regular aerobic exercise. - Recommend home blood pressure monitoring, to bring results in on next visit - Patient to check chava home BP's and call into office with readings. - Goal of BP <130/80 3. Mixed hyperlipidemia - ICD9: 272.2, ICD10: E78.2 - good control - Encouraged following a low fat, low cholesterol diet. - Discussed the benefits of regular aerobic exercise and weight loss. - Encouraged following a low carbohydrate, healthy oil intake diet. - Continue current therapy. 4. Generalized anxiety disorder - ICD9: 300.02, ICD10: F41.1 - Clinically stable 5. Stage 3a chronic kidney disease (HCC) - ICD9: 585.3, ICD10: N18.31 - Normal on recent labs. No changes. 6. 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 Noise-induced hearing loss, unspecified laterality - ICD9: 388.12, ICD10: H83.3X9 - Not always wearing hearing aids. 8. Malignant neoplasm of prostate (HCC) - ICD9: 185, ICD10: C61 - As per #6 9. Hypercalcemia - ICD9: 275.42, ICD10: E83.52 Check - BASIC METABOLIC PNL - PTH INTACT BLD 10. Hyperkalemia - ICD9: 276.7, ICD10: E87.5 Check - BASIC METABOLIC PNL 11. Advance directive discussed with patient - ICD9: V65.49, ICD10: Z71.89 - Advised to bring in copies. 12. Living will in place - ICD9: V49.89, ICD10: Z78.9 - As per #11 13. Screening for colon cancer - ICD9: V76.51, ICD10: Z12.11 - Patient wants to hold off till fall. F/u in a year extensive or sooner if needed. I spent a total of 40 minutes on the date of the service which included preparing to see the patient, [id number] patient care, completing clinical documentation, performing a medically appropriate examination, counseling and educating the patient/family/caregiver and ordering medications, tests, or procedures. Richie Swift MD documented in this encounter [facility] 10-07-2021 Miscellaneous Notes Orders placed. Patient's calls and states that patient has appointment with provider on 10/30/2021. asking provider what labs does provider want patient to get done prior to appointment? Please review and advise, Jaqueline Mera RN documented in this encounter [facility] documented in this encounter [facility]03-16-2022 Instructions* Instruction Description Start Date Patient advised to follow-up with Primary Care Physician for BMI management. [facility] Work Phone: 1([phone] 408-812101-02-2018 History of Past illness Narrative* Problem Noted Date Resolved Date Acute posthemorrhagic anemia 06/30/201705/2019 Atrial fibrillation with rapid ventricular respo nse 06/30/2017 08/10/2018 Overview: post-op, short lived Chronic prostatitis 06/30/2017 06/30/2017 Hematuria 06/30/2017 06/30/2017 Retention of urine, unspecified 06/30/2017 06/30/2017 Syncope and collapse 06/30/2017 06/30/2017 Unspecified hydronephrosis 06/30/201706/30 Special screening for malignant neoplasms, colon 03/01/2015 03/01/2015 Elevated PSA, less than 10 ng/ml 01/01/2015 06/30/2017 documented as of this encounter (statuses as of 10/07/2021) [facility] History of Past illness Narrative* Problem Noted Date Resolved Date Acute posthemorrhagic anemia 06/30/201705/2019 Atrial fibrillation with rapid ventricular respo nse 06/30/2017 08/10/2018 Overview: post-op, short lived Chronic prostatitis 06/30/2017 06/30/2017 Hematuria 06/30/2017 06/30/2017 Retention of urine, unspecified 06/30/2017 06/30/2017 Syncope and collapse 06/30/2017 06/30/2017 Unspecified hydronephrosis 06/30/201706/30 Special screening for malignant neoplasms, colon 03/01/2015 03/01/2015 Elevated PSA, less than 10 ng/ml 01/01/2015 06/30/2017 documented as of this encounter (statuses as of 10/30/2021) [facility] History of Past illness Narrative* Problem Noted Date Resolved Date Acute posthemorrhagic anemia 06/30/201705/2019 Atrial fibrillation with rapid ventricular respo nse 06/30/2017 08/10/2018 Overview: post-op, short lived Chronic prostatitis 06/30/2017 06/30/2017 Hematuria 06/30/2017 06/30/2017 Retention of urine, unspecified 06/30/2017 06/30/2017 Syncope and collapse 06/30/2017 06/30/2017 Unspecified hydronephrosis 06/30/201706/30 Special screening for malignant neoplasms, colon 03/01/2015 03/01/2015 Elevated PSA, less than 10 ng/ml 01/01/2015 06/30/2017 documented as of this encounter (statuses as of 10/31/2021) [facility] History of Past illness Narrative* Problem Noted Date Resolved Date Acute posthemorrhagic anemia 06/30/201705/2019 Atrial fibrillation with rapid ventricular respo nse 06/30/2017 08/10/2018 Overview: post-op, short lived Chronic prostatitis 06/30/2017 06/30/2017 Hematuria 06/30/2017 06/30/2017 Retention of urine, unspecified 06/30/2017 06/30/2017 Syncope and collapse 06/30/2017 06/30/2017 Unspecified hydronephrosis 06/30/201706/30 Special screening for malignant neoplasms, colon 03/01/2015 03/01/2015 Elevated PSA, less than 10 ng/ml 01/01/2015 06/30/2017 documented as of this encounter (statuses as of 11/04/2021) [facility] History of Past illness Narrative* Problem Noted Date Resolved Date Acute posthemorrhagic anemia 06/30/201705/2019 Atrial fibrillation with rapid ventricular respo nse 06/30/2017 08/10/2018 Overview: post-op, short lived Chronic prostatitis 06/30/2017 06/30/2017 Hematuria 06/30/2017 06/30/2017 Retention of urine, unspecified 06/30/2017 06/30/2017 Syncope and collapse 06/30/2017 06/30/2017 Unspecified hydronephrosis 06/30/201706/30 Special screening for malignant neoplasms, colon 03/01/2015 03/01/2015 Elevated PSA, less than 10 ng/ml 01/01/2015 06/30/2017 documented as of this encounter (statuses as of 11/28/2021) [facility] History of Past illness Narrative* Problem Noted Date Resolved Date Acute posthemorrhagic anemia 06/30/201705/2019 Atrial fibrillation with rapid ventricular respo nse 06/30/2017 08/10/2018 Overview: post-op, short lived Chronic prostatitis 06/30/2017 06/30/2017 Hematuria 06/30/2017 06/30/2017 Retention of urine, unspecified 06/30/2017 06/30/2017 Syncope and collapse 06/30/2017 06/30/2017 Unspecified hydronephrosis 06/30/201706/30 Special screening for malignant neoplasms, colon 03/01/2015 03/01/2015 Elevated PSA, less than 10 ng/ml 01/01/2015 06/30/2017 documented as of this encounter (statuses as of 11/29/2021) [facility] History of Past illness Narrative* Problem Noted Date Resolved Date Acute posthemorrhagic anemia 06/30/201705/2019 Atrial fibrillation with rapid ventricular respo nse 06/30/2017 08/10/2018 Overview: post-op, short lived Chronic prostatitis 06/30/2017 06/30/2017 Hematuria 06/30/2017 06/30/2017 Retention of urine, unspecified 06/30/2017 06/30/2017 Syncope and collapse 06/30/2017 06/30/2017 Unspecified hydronephrosis 06/30/201706/30 Special screening for malignant neoplasms, colon 03/01/2015 03/01/2015 Elevated PSA, less than 10 ng/ml 01/01/2015 06/30/2017 documented as of this encounter (statuses as of 12/12/2021) [facility] History of Past illness Narrative* Problem Noted Date Resolved Date Acute posthemorrhagic anemia 06/30/201705/2019 Atrial fibrillation with rapid ventricular respo nse 06/30/2017 08/10/2018 Overview: post-op, short lived Chronic prostatitis 06/30/2017 06/30/2017 Hematuria 06/30/2017 06/30/2017 Retention of urine, unspecified 06/30/2017 06/30/2017 Syncope and collapse 06/30/2017 06/30/2017 Unspecified hydronephrosis 06/30/201706/30 Special screening for malignant neoplasms, colon 03/01/2015 03/01/2015 Elevated PSA, less than 10 ng/ml 01/01/2015 06/30/2017 documented as of this encounter (statuses as of 12/12/2021) [facility] History of Past illness Narrative* Problem Noted Date Resolved Date Acute posthemorrhagic anemia 06/30/201705/2019 Atrial fibrillation with rapid ventricular respo nse 06/30/2017 08/10/2018 Overview: post-op, short lived Chronic prostatitis 06/30/2017 06/30/2017 Hematuria 06/30/2017 06/30/2017 Retention of urine, unspecified 06/30/2017 06/30/2017 Syncope and collapse 06/30/2017 06/30/2017 Unspecified hydronephrosis 06/30/201706/30 Special screening for malignant neoplasms, colon 03/01/2015 03/01/2015 Elevated PSA, less than 10 ng/ml 01/01/2015 06/30/2017 documented as of this encounter (statuses as of 12/17/2021) [facility] History of Past illness Narrative* Problem Noted Date Resolved Date Acute posthemorrhagic anemia 06/30/201705/2019 Atrial fibrillation with rapid ventricular respo nse 06/30/2017 08/10/2018 Overview: post-op, short lived Chronic prostatitis 06/30/2017 06/30/2017 Hematuria 06/30/2017 06/30/2017 Retention of urine, unspecified 06/30/2017 06/30/2017 Syncope and collapse 06/30/2017 06/30/2017 Unspecified hydronephrosis 06/30/201706/30 Special screening for malignant neoplasms, colon 03/01/2015 03/01/2015 Elevated PSA, less than 10 ng/ml 01/01/2015 06/30/2017 documented as of this encounter (statuses as of 01/06/2022) [facility] History of Past illness Narrative* Problem Noted Date Resolved Date Acute posthemorrhagic anemia 06/30/201705/2019 Atrial fibrillation with rapid ventricular respo nse 06/30/2017 08/10/2018 Overview: post-op, short lived Chronic prostatitis 06/30/2017 06/30/2017 Hematuria 06/30/2017 06/30/2017 Retention of urine, unspecified 06/30/2017 06/30/2017 Syncope and collapse 06/30/2017 06/30/2017 Unspecified hydronephrosis 06/30/201706/30 Special screening for malignant neoplasms, colon 03/01/2015 03/01/2015 Elevated PSA, less than 10 ng/ml 01/01/2015 06/30/2017 documented as of this encounter (statuses as of 01/30/2022) [place] [address]-02-2018 History of Past illness Narrative* Problem Noted Date Resolved Date Acute posthemorrhagic anemia 06/30/201705/2019 Atrial fibrillation with rapid ventricular respo nse 06/30/2017 08/10/2018 Overview: post-op, short lived Chronic prostatitis 06/30/2017 06/30/2017 Hematuria 06/30/2017 06/30/2017 Retention of urine, unspecified 06/30/2017 06/30/2017 Syncope and collapse 06/30/2017 06/30/2017 Unspecified hydronephrosis 06/30/201706/30 Special screening for malignant neoplasms, colon 03/01/2015 03/01/2015 Elevated PSA, less than 10 ng/ml 01/01/2015 06/30/2017 documented as of this encounter (statuses as of 01/30/2022) [facility] History of Past illness Narrative* Problem Noted Date Resolved Date Acute posthemorrhagic anemia 06/30/201705/2019 Atrial fibrillation with rapid ventricular respo nse 06/30/2017 08/10/2018 Overview: post-op, short lived Chronic prostatitis 06/30/2017 06/30/2017 Hematuria 06/30/2017 06/30/2017 Retention of urine, unspecified 06/30/2017 06/30/2017 Syncope and collapse 06/30/2017 06/30/2017 Unspecified hydronephrosis 06/30/201706/30 Special screening for malignant neoplasms, colon 03/01/2015 03/01/2015 Elevated PSA, less than 10 ng/ml 01/01/2015 06/30/2017 documented as of this encounter (statuses as of 02/20/2022) [facility] History of Past illness Narrative* Problem Noted Date Resolved Date Acute posthemorrhagic anemia 06/30/201705/2019 Atrial fibrillation with rapid ventricular respo nse 06/30/2017 08/10/2018 Overview: post-op, short lived Chronic prostatitis 06/30/2017 06/30/2017 Hematuria 06/30/2017 06/30/2017 Retention of urine, unspecified 06/30/2017 06/30/2017 Syncope and collapse 06/30/2017 06/30/2017 Unspecified hydronephrosis 06/30/201706/30 Special screening for malignant neoplasms, colon 03/01/2015 03/01/2015 Elevated PSA, less than 10 ng/ml 01/01/2015 06/30/2017 documented as of this encounter (statuses as of 02/24/2022) [facility] History of Past illness Narrative* Problem Noted Date Resolved Date Acute posthemorrhagic anemia 06/30/201705/2019 Atrial fibrillation with rapid ventricular respo nse 06/30/2017 08/10/2018 Overview: post-op, short lived Chronic prostatitis 06/30/2017 06/30/2017 Hematuria 06/30/2017 06/30/2017 Retention of urine, unspecified 06/30/2017 06/30/2017 Syncope and collapse 06/30/2017 06/30/2017 Unspecified hydronephrosis 06/30/201706/30 Special screening for malignant neoplasms, colon 03/01/2015 03/01/2015 Elevated PSA, less than 10 ng/ml 01/01/2015 06/30/2017 documented as of this encounter (statuses as of 04/11/2022) [facility] History of Past illness Narrative* Problem Noted Date Resolved Date Acute posthemorrhagic anemia 06/30/201705/2019 Atrial fibrillation with rapid ventricular respo nse 06/30/2017 08/10/2018 Overview: post-op, short lived Chronic prostatitis 06/30/2017 06/30/2017 Hematuria 06/30/2017 06/30/2017 Retention of urine, unspecified 06/30/2017 06/30/2017 Syncope and collapse 06/30/2017 06/30/2017 Unspecified hydronephrosis 06/30/201706/30 Special screening for malignant neoplasms, colon 03/01/2015 03/01/2015 Elevated PSA, less than 10 ng/ml 01/01/2015 06/30/2017 documented as of this encounter (statuses as of 04/15/2022) [facility] History of Past illness Narrative* Problem Noted Date Resolved Date Acute posthemorrhagic anemia 06/30/201705/2019 Atrial fibrillation with rapid ventricular respo nse 06/30/2017 08/10/2018 Overview: post-op, short lived Chronic prostatitis 06/30/2017 06/30/2017 Hematuria 06/30/2017 06/30/2017 Retention of urine, unspecified 06/30/2017 06/30/2017 Syncope and collapse 06/30/2017 06/30/2017 Unspecified hydronephrosis 06/30/201706/30 Special screening for malignant neoplasms, colon 03/01/2015 03/01/2015 Elevated PSA, less than 10 ng/ml 01/01/2015 06/30/2017 documented as of this encounter (statuses as of 05/23/2022) [facility] History of Past illness Narrative* Problem Noted Date Resolved Date Acute posthemorrhagic anemia 06/30/201705/2019 Atrial fibrillation with rapid ventricular respo nse 06/30/2017 08/10/2018 Overview: post-op, short lived Chronic prostatitis 06/30/2017 06/30/2017 Hematuria 06/30/2017 06/30/2017 Retention of urine, unspecified 06/30/2017 06/30/2017 Syncope and collapse 06/30/2017 06/30/2017 Unspecified hydronephrosis 06/30/201706/30 Special screening for malignant neoplasms, colon 03/01/2015 03/01/2015 Elevated PSA, less than 10 ng/ml 01/01/2015 06/30/2017 documented as of this encounter (statuses as of 07/02/2022) [facility] History of Past illness Narrative* Problem Noted Date Resolved Date Acute posthemorrhagic anemia 06/30/201705/2019 Atrial fibrillation with rapid ventricular respo nse 06/30/2017 08/10/2018 Overview: post-op, short lived Chronic prostatitis 06/30/2017 06/30/2017 Hematuria 06/30/2017 06/30/2017 Retention of urine, unspecified 06/30/2017 06/30/2017 Syncope and collapse 06/30/2017 06/30/2017 Unspecified hydronephrosis 06/30/201706/30 Special screening for malignant neoplasms, colon 03/01/2015 03/01/2015 Elevated PSA, less than 10 ng/ml 01/01/2015 06/30/2017 documented as of this encounter (statuses as of 09/02/2022) [facility] History of Past illness Narrative* Problem Noted Date Resolved Date Acute posthemorrhagic anemia 06/30/201705/2019 Atrial fibrillation with rapid ventricular respo nse 06/30/2017 08/10/2018 Overview: post-op, short lived Chronic prostatitis 06/30/2017 06/30/2017 Hematuria 06/30/2017 06/30/2017 Retention of urine, unspecified 06/30/2017 06/30/2017 Syncope and collapse 06/30/2017 06/30/2017 Unspecified hydronephrosis 06/30/201706/30 Special screening for malignant neoplasms, colon 03/01/2015 03/01/2015 Elevated PSA, less than 10 ng/ml 01/01/2015 06/30/2017 documented as of this encounter (statuses as of 09/17/2022) [facility] History of Past illness Narrative* Problem Noted Date Resolved Date Acute posthemorrhagic anemia 06/30/201705/2019 Atrial fibrillation with rapid ventricular respo nse 06/30/2017 08/10/2018 Overview: post-op, short lived Chronic prostatitis 06/30/2017 06/30/2017 Hematuria 06/30/2017 06/30/2017 Retention of urine, unspecified 06/30/2017 06/30/2017 Syncope and collapse 06/30/2017 06/30/2017 Unspecified hydronephrosis 06/30/201706/30 Special screening for malignant neoplasms, colon 03/01/2015 03/01/2015 Elevated PSA, less than 10 ng/ml 01/01/2015 06/30/2017 documented as of this encounter (statuses as of 10/21/2022) [facility] History of Past illness Narrative* Problem Noted Date Resolved Date Acute posthemorrhagic anemia 06/30/201705/2019 Atrial fibrillation with rapid ventricular respo nse 06/30/2017 08/10/2018 Overview: post-op, short lived Chronic prostatitis 06/30/2017 06/30/2017 Hematuria 06/30/2017 06/30/2017 Retention of urine, unspecified 06/30/2017 06/30/2017 Syncope and collapse 06/30/2017 06/30/2017 Unspecified hydronephrosis 06/30/201706/30 Special screening for malignant neoplasms, colon 03/01/2015 03/01/2015 Elevated PSA, less than 10 ng/ml 01/01/2015 06/30/2017 documented as of this encounter (statuses as of 11/26/2022) [facility] History of Past illness Narrative* Problem Noted Date Diagnosed Date Resolved Date Acute posthemorrhagic anemia 06/30/2017 08/10/2018 Atrial fibrillation with rap id ventricular response 06/30/2017 08/10/2018 Overview: post-op, short lived Chronic prostatitis 06/30/2017 06/30/19 18 Hematuria 06/30/2017 06/30/2017 Retention of urine, unspecified 06/30/2017 06/30/2017 Syncope and collapse 06/30/2017 018 Unspecified hydronephrosis 06/30/2017 0 06/30/2017 Special screening for malign ant neoplasms, colon 03/01/2015 03/01/2015 Elevated PSA, less than 10 ng/ml 01/01/2015 06/30/2017 documented as of this encounter (statuses as of 01/13/2023) [facility] History of Past illness Narrative* Problem Noted Date Diagnosed Date Resolved Date Acute posthemorrhagic anemia 06/30/2017 08/10/2018 Atrial fibrillation with rap id ventricular response 06/30/2017 08/10/2018 Overview: post-op, short lived Chronic prostatitis 06/30/2017 06/30/19 18 Hematuria 06/30/2017 06/30/2017 Retention of urine, unspecified 06/30/2017 06/30/2017 Syncope and collapse 06/30/2017 018 Unspecified hydronephrosis 06/30/2017 0 06/30/2017 Special screening for malign ant neoplasms, colon 03/01/2015 03/01/2015 Elevated PSA, less than 10 ng/ml 01/01/2015 06/30/2017 documented as of this encounter (statuses as of 04/29/2023) [facility] noteThere may be information available, but it has not been provided by the sender.[facility] Work Phone: Evaluation note* Diagnosis Medicare annual wellness visit, subsequent- Primary Routine general medical examination at a health care facility Essential hypertension, benign Mixed hyperlipidemia Generalized anxiety disorder Stage 3a chronic kidney disease (HCC) Clear cell adenocarcinoma of kidney (HCC) Malignant neoplasm of kidney, except pelvis Noise-induced hearing loss, unspecified laterality Malignant neoplasm of prostate (HCC) Malignant neoplasm of prostate Hypercalcemia Hyperkalemia Hyperpotassemia Advance directive discussed with patient Other specified counseling Living will in place Screening for colon cancer Special screening for malignant neoplasms, colon [facility] Diagnosis Hypercalcemia- Primary [facility] Diagnosis Aphasia- Primary Dysphasia Other speech disturbance Confusion Unspecified psychosis [facility]* Diagnosis Dysphasia Other speech disturbance Aphasia Confusion Unspecified psychosis [facility]* Diagnosis Hyperlipidemia LDL goal <130 Other and unspecified hyperlipidemia [facility]* Diagnosis Transient speech disturbance- Primary Transient cerebral ischemia, unspecified type [facility]* Diagnosis Transient cerebral ischemia, unspecified type [facility]* Diagnosis Hyperlipidemia LDL goal <130 Other and unspecified hyperlipidemia [facility] Instruction Description Start Date Patient advised to follow-up with Primary Care Physician for BMI management. [facility] Work Phone: Chief Complaint Chief Complaint Description Start Date right wrist pain Preliminary chief co mplaint data, not yet signed by the author as of Chief Complaint Description Start Date right wrist pain Preliminary chief co mplaint data, not yet signed by the author as of Advance Directives There may be information available, but it has not been provided by the sender. There may be information available, but it has not been provided by the sender. No Advanced Directives Records Found Family History There may be information available, but it has not been provided by the sender.There may be information available, but it has not been provided by the sender.No Family History Records Found Reason for Referral Specialty Diagnoses / Procedures Referred By Contac t Referred To Contact Neurology Diagnoses Dysphasia Aphasia Confusion Procedures CONSULT TO NEUROLOGY OFFICE/OUTPATIENT [facility] 60-74 MINUTES Ramiro Watson PA-C [address] [place] [address] Referral ID Status Reason Start Date Expiration Date Visits Requested Visits Authorized [id number] Authorized PCP Requested Referral 11/29/2021 11/29/2022 1 1 Specialty Diagnoses / Procedures Referred By Contac t Referred To Contact MR IMAGING Diagnoses Dysphasia Aphasia Confusion Procedures MRI BRAIN WO/W IVCON MRI BRAIN BRAIN STEM W/O W/CONTRAST MATERIAL Ramiro Watson PA-C [address] [place] [address] Mr Imaging Referral ID Status Reason Start Date Expiration Date Visits Requested Visits Authorized [id number] Authorized Auto-Generat ed Referral 11/29/2021 12/29/2022 1 1 Referral ID Status Reason Start Date Expiration Date V isits Requested Visits Authorized [id number] Closed Auto-Generate d Referral 11/29/2021 12/29/2022 1 1 Specialty Diagnoses / Procedures Referred By Contac t Referred To Contact MR IMAGING Diagnoses Transient cerebral ischemia, unspecified type Procedures MRA CAROTID WO IVCON MRA, NECK; W/O CONTRAST Amie Decker, MONOGRAM MAKER.DEPUTY DIRECTOR OF NURSING [address] [place] [address] Mr Imaging Referral ID Status Reason Start Date Expiration Date Visits Requested Visits Authorized [id number] Authorized Auto-Generat ed Referral 01/30/2022 03/01/2023 1 1 Specialty Diagnoses / Procedures Referred By Contac t Referred To Contact MR IMAGING Diagnoses Transient cerebral ischemia, unspecified type Procedures MRA BRAIN WO IVCON MRA, HEAD W/O CONTRAST Amie Decker, MONOGRAM MAKER.DEPUTY DIRECTOR OF NURSING [address] [place] [address] Mr Imaging Referral ID Status Reason Start Date Expiration Date Visits Requested Visits Authorized [id number] Authorized Auto-Generat ed Referral 01/30/2022 03/01/2023 1 1 Specialty Diagnoses / Procedures Referred By Contac t Referred To Contact [facility] Diagnoses Transient speech disturbance Procedures EPIL EEG ROUTINE ELECTROENCEPHALOGRAM REC COMA/SLEEP ONLY Amie Decker, MONOGRAM MAKER.DEPUTY DIRECTOR OF NURSING [address] [place] [address] [facility] [place] [address] [place] [address] Referral ID Status Reason Start Date Expiration Date Visits Requested Visits Authorized [id number] Pending Review Auto-Generat ed Referral 01/30/2022 01/30/2023 1 1 Referral ID Status Reason Start Date Expiration Date V isits Requested Visits Authorized [id number] Closed Auto-Generate d Referral 01/30/2022 03/01/2023 1 1 Referral ID Status Reason Start Date Expiration Date V isits Requested Visits Authorized [id number] Closed Auto-Generate d Referral 01/30/2022 03/01/2023 1 1 Summary Purpose Additional Source Comments Reason for Visit (unrecogniz ed section and content) Reason For Visit Description Start Date Follow-up by complaint Preliminary reason f or visit data, not yet signed by the author as of right wrist pain Reason Comments Lab Orders Reason Comments Physical Reason Comments Results Reason Comments Blood Pressure Reason Comments Patient Update Reason Comments memory issues Specialty Diagnoses / Procedures Referred By Contac t Referred To Contact MR IMAGING Diagnoses Dysphasia Aphasia Confusion Procedures MRI BRAIN WO/W IVCON MRI BRAIN BRAIN STEM W/O W/CONTRAST MATERIAL Ramiro Watson PA-C [address] [place] [address] Mr Imaging Referral ID Status Reason Start Date Expiration Date V isits Requested Visits Authorized [id number] Closed Auto-Generate d Referral 11/29/2021 12/29/2022 1 1 Reason Onset Date Comments Refill Request 01/06/2022 Reason Comments Dementia Reason Comments Orders Video EEG Monitoring Specialty Diagnoses / Procedures Referred By Contmitra t Referred To Contact MR IMAGING Diagnoses Transient cerebral ischemia, unspecified type Procedures MRA CAROTID WO IVCON MRA, NECK; W/O CONTRAST Amie Decker APRN.DEPUTY DIRECTOR OF NURSING [address] [place] [address] Mr Imaging Referral ID Status Reason Start Date Expiration Date V isits Requested Visits Authorized [id number] Closed Auto-Generate d Referral 01/30/2022 03/01/2023 1 1 Reason Comments Refill Request Reason Onset Date Comments Population Health Navigation Outreach 06/26/2022 [facility]SA Reason Comments Results, Lab Reason Onset Date Comments Population Health Navigation Outreach 09/17/2022 [facility] GNII [facility]SA Reason Onset Date Comments Refill Request 10/21/2022 Reason Comments Release Of Medical Records Reason Comments Outside Urology Reason Onset Date Comments Population Health Navigation Outreach 04/28/2023 [facility] G[facility] Source Comments (unrecognize d section and content) In the event this informatio n is protected by the Federal Confidentiality of Alcohol and Drug Abuse Patient Records regulations: The Federal rules restrict any use of the information to criminally investigate or prosecute any alcohol or drug abuse patient.[facility] the event this information is protected by the Federal Confidentiality of Alcohol and Drug Abuse Patient Records regulations: The Federal rules restrict any use of the information to criminally investigate or prosecute any alcohol or drug abuse patient.[facility] the event this information is protected by the Federal Confidentiality of Alcohol and Drug Abuse Patient Records regulations: The Federal rules restrict any use of the information to criminally investigate or prosecute any alcohol or drug abuse patient.[facility] the event this information is protected by the Federal Confidentiality of Alcohol and Drug Abuse Patient Records regulations: The Federal rules restrict any use of the information to criminally investigate or prosecute any alcohol or drug abuse patient.[facility] the event this information is protected by the Federal Confidentiality of Alcohol and Drug Abuse Patient Records regulations: The Federal rules restrict any use of the information to criminally investigate or prosecute any alcohol or drug abuse patient.[facility] the event this information is protected by the Federal Confidentiality of Alcohol and Drug Abuse Patient Records regulations: The Federal rules restrict any use of the information to criminally investigate or prosecute any alcohol or drug abuse patient.[facility] the event this information is protected by the Federal Confidentiality of Alcohol and Drug Abuse Patient Records regulations: The Federal rules restrict any use of the information to criminally investigate or prosecute any alcohol or drug abuse patient.[facility] the event this information is protected by the Federal Confidentiality of Alcohol and Drug Abuse Patient Records regulations: The Federal rules restrict any use of the information to criminally investigate or prosecute any alcohol or drug abuse patient.[facility] the event this information is protected by the Federal Confidentiality of Alcohol and Drug Abuse Patient Records regulations: The Federal rules restrict any use of the information to criminally investigate or prosecute any alcohol or drug abuse patient.[facility] the event this information is protected by the Federal Confidentiality of Alcohol and Drug Abuse Patient Records regulations: The Federal rules restrict any use of the information to criminally investigate or prosecute any alcohol or drug abuse patient.[facility] the event this information is protected by the Federal Confidentiality of Alcohol and Drug Abuse Patient Records regulations: The Federal rules restrict any use of the information to criminally investigate or prosecute any alcohol or drug abuse patient.[facility] the event this information is protected by the Federal Confidentiality of Alcohol and Drug Abuse Patient Records regulations: The Federal rules restrict any use of the information to criminally investigate or prosecute any alcohol or drug abuse patient.[facility]In the event this information is protected by the Federal Confidentiality of Alcohol and Drug Abuse Patient Records regulations: The Federal rules restrict any use of the information to criminally investigate or prosecute any alcohol or drug abuse patient.[facility] HospitalIn the event this information is protected by the Federal Confidentiality of Alcohol and Drug Abuse Patient Records regulations: The Federal rules restrict any use of the information to criminally investigate or prosecute any alcohol or drug abuse patient.[facility]In the event this information is protected by the Federal Confidentiality of Alcohol and Drug Abuse Patient Records regulations: The Federal rules restrict any use of the information to criminally investigate or prosecute any alcohol or drug abuse patient.[facility] HospitalIn the event this information is protected by the Federal Confidentiality of Alcohol and Drug Abuse Patient Records regulations: The Federal rules restrict any use of the information to criminally investigate or prosecute any alcohol or drug abuse patient.[facility]In the event this information is protected by the Federal Confidentiality of Alcohol and Drug Abuse Patient Records regulations: The Federal rules restrict any use of the information to criminally investigate or prosecute any alcohol or drug abuse patient.[facility]In the event this information is protected by the Federal Confidentiality of Alcohol and Drug Abuse Patient Records regulations: The Federal rules restrict any use of the information to criminally investigate or prosecute any alcohol or drug abuse patient.[facility] HospitalIn the event this information is protected by the Federal Confidentiality of Alcohol and Drug Abuse Patient Records regulations: The Federal rules restrict any use of the information to criminally investigate or prosecute any alcohol or drug abuse patient.[facility] HospitalIn the event this information is protected by the Federal Confidentiality of Alcohol and Drug Abuse Patient Records regulations: The Federal rules restrict any use of the information to criminally investigate or prosecute any alcohol or drug abuse patient.[facility] HospitalIn the event this information is protected by the Federal Confidentiality of Alcohol and Drug Abuse Patient Records regulations: The Federal rules restrict any use of the information to criminally investigate or prosecute any alcohol or drug abuse patient.[facility] HospitalIn the event this information is protected by the Federal Confidentiality of Alcohol and Drug Abuse Patient Records regulations: The Federal rules restrict any use of the information to criminally investigate or prosecute any alcohol or drug abuse patient.[facility] HospitalIn the event this information is protected by the Federal Confidentiality of Alcohol and Drug Abuse Patient Records regulations: The Federal rules restrict any use of the information to criminally investigate or prosecute any alcohol or drug abuse patient.[facility] HospitalIn the event this information is protected by the Federal Confidentiality of Alcohol and Drug Abuse Patient Records regulations: The Federal rules restrict any use of the information to criminally investigate or prosecute any alcohol or drug abuse patient.[facility] Care Teams (unrecognized sec tion and content) Senior Contract Specialist Relationship Specialty Start Date End Date Richie Swift MD [address] [place] [address] PCP - General Family Practice 10/24/20 Senior Contract Specialist Relationship Specialty Start Date End Date Richie Swift MD [address] [place], [place] [address] PCP - General Family Practice 10/24/20 Senior Contract Specialist Relationship Specialty Start Date End Date Richie Swift MD [address] [place] [address] PCP - General Family Practice 10/24/20 Senior Contract Specialist Relationship Specialty Start Date End Date Richie Swift MD [address] [place] [address] PCP - General Family Practice 10/24/20 Senior Contract Specialist Relationship Specialty Start Date End Date Richie Swift MD [address] [place] [address] PCP - General Family Practice 10/24/20 Senior Contract Specialist Relationship Specialty Start Date End Date Richie Swift MD [address] [place] [id number] PCP - General Family Practice 10/24/20 Senior Contract Specialist Relationship Specialty Start Date End Date Richie Swift MD [address] [place] [id number] PCP - General Family Practice 10/24/20 Senior Contract Specialist Relationship Specialty Start Date End Date Richie Swift MD [facility] [place] [address] PCP - General Family Practice 10/24/20 Senior Contract Specialist Relationship Specialty Start Date End Date Richie Swift MD [facility] [place] [address] PCP - General Family Medicine 10/24/20 Senior Contract Specialist Relationship Specialty Start Date End Date Richie Swift MD [facility] [place] [address] PCP - General Family Medicine 10/24/20 Senior Contract Specialist Relationship Specialty Start Date End Date Richie Swift MD [facility] [place] [address] PCP - General Family Medicine 10/24/20 Senior Contract Specialist Relationship Specialty Start Date End Date Richie Swift MD [address] [place], [place] [address] PCP - General Family Medicine 10/24/20 Senior Contract Specialist Relationship Specialty Start Date End Date Richie Swift MD [address] [place], [place] [address] [phone] PCP - General Family Medicine 10/24/20 Senior Contract Specialist Relationship Specialty Start Date End Date Richie Swift MD [address] [place], [place] [id number] PCP - General Family Medicine 10/24/20 Senior Contract Specialist Relationship Specialty Start Date End Date Richie Swift MD [address] [place], [place] [id number] PCP - General Family Medicine 10/24/20 (unrecognized sect ion and content) No Status Records Found INFORMATION SOURCE (unrecogn ized section and content) FOR RECORDS PERTAINING TO PATIENTS WHO ARE OR HAVE BEEN ENROLLED IN A CHEMICAL DEPENDENCY/SUBSTANCEABUSE PROGRAM, SOME INFORMATION MAY BE OMITTED. This clinical summary was aggregated from multiple sources. Caution should be exercised in using it in the provision of clinical care. This summary normalizes information from multiple sources, and as a consequence, information in this document may materially change the coding, format and clinical context of patient data. In addition, data may be omitted in some cases. CLINICAL DECISIONS SHOULD BE BASED ON THE PRIMARY CLINICAL RECORDS. [facility] [employer] [facility]. provides no warranty or guarantee of the accuracy or completeness of information in this document.
--- NOTE | 2023-08-04 12:00 | PET_ITS ---
EXAMINATION: F18 [address]yl[address] CT INDICATIONS: A 72-year-old male with history of prostate carcinoma presenting for restaging examination. COMPARISON: Prior F18 Pyl[address] PET CT examination dated 06/04/22. TECHNIQUE: Following the intravenous administration of 9.71 mCi of PSMA-Pylarify via the left antecubital fossa, image acquisitions of the head, neck, chest, abdomen and pelvis to the level of the mid thigh at 73 minutes post-tracer distribution reveal: The examination was interpreted using the EANM (Faye et al., Journal of Nuclear Medicine Molecular Imaging 44:1622, 2017) and PROMISE (Eidyan et al., Journal of Nuclear Medicine 59:469, 2018) interpretive criteria. HEIGHT: 70 inches. WEIGHT: 190 lbs. PSMA expression score PROMISE criteria: High (3): SUV ? parotid-salivary gland, intermediate (2): SUV ? liver, low (1): > blood pool, < liver, (0): < blood pool. SUV reference values: Parotid glands 34.84 Normal liver parenchyma 8.9 Blood pool 2.7 FINDINGS: Head/Neck: Symmetric tracer uptake is noted in the bilateral parotid and submandibular glands. Physiologic uptake is noted in the nasal cavity. There is no evidence of abnormal increased radiopharmaceutical concentration within the context of the cranial vault. CHEST: There is no evidence of abnormal increased radiopharmaceutical within the context of the bilateral hemithorax pulmonary parenchyma, mediastinal structures and right-left thoracic perihilum. Pertinent chest CT findings are as follows. Atherosclerotic calcification is defined in the thoracic aorta without evidence of dilatation, aneurysm formation. Coronary arterial calcification is observed. There are no parenchymal densities-nodules defined in the right and left hemithorax with quantitatively significant increased tracer uptake. Mediastinal and bilateral axillary soft tissue densities are non-radiopharmaceutical avid. Abdomen/Pelvis: Physiologic tracer uptake is noted in the hepatic and splenic parenchyma, bilateral renal units, visualized intestinal tract, and urinary bladder. Abdomen and pelvis CT findings are as follows. Right and left inguinal soft tissue densities are ametabolic. Apparent postsurgical clips are identified in the bilateral lower hemipelvic mesentery. The patient is status post prostatectomy. There is atherosclerotic calcification defined in the abdominal aorta without evidence of dilatation-aneurysm formation. Cholelithiasis is defined. Pelvic arterial calcification is defined. Skeletal: Degenerative changes defined in the cervical, thoracic and lumbar spine demonstrate no evidence of glucose hypermetabolism. PET/PET/CT Tumor Base -Thigh Subs IMPRESSION: 1. NEGATIVE EXAMINATION. There is no definitive quantitative scintigraphic evidence of recurrent-metastatic viable neoplasm. 2. Overall, compared to the prior F18 Pyl[address] PET CT study dated 06/04/22, there is current and continued absence of defined viable neoplastic disease. Electronic Signature Christiano Brooks D.O. Accurate Quantification of SUVs and standardized PROMISE scores for this report are calculated using the exclusive [employer], ([place]. Patent No. [phone] [place] patent [phone] ). Standardization and correction of the FDG SUV metric exclusively available with [employer] intellectual property, allow for vendor non-specific objective quantitative sequential FDG PET-CT comparison and otherwise unobtainable optimization of the sensitivity and specificity of the examination. [email or web address] Electronically Signed: Christiano Brooks DO at 23:38 EST ,
== END | disposition home or self-care (01) ==
LOC: ONC 09:23
PROVIDERS: PCP Family Medicine; Referring Provider Urology; Visit Provider Urology
DX: C61 Malignant neoplasm of prostate (principal); R97.21 Rising PSA following treatment for malignant neoplasm of prostate
CPT/HCPCS: 78815; A9595

== ENCOUNTER → 2023-10-19 | Outpatient (CLI) | payer MEDICARE, OTHER, SELFPAY ==
[2023-10-19 09:16] LABS: PSA,Total- Diagnostic 0.22 ng/mL (0.0-4.0)
== END | disposition home or self-care (01) ==
LOC: LAB 07:45
PROVIDERS: PCP Family Medicine; Referring Provider Urology; Visit Provider Urology
DX: C61 Malignant neoplasm of prostate (principal)
CPT/HCPCS: 36415; 84153

== ENCOUNTER → 2024-01-20 | Outpatient (CLI) | payer MEDICARE, OTHER, SELFPAY | END | disposition home or self-care (01) | LOC: LAB 08:01 | PROVIDERS: PCP Family Medicine; Visit Provider Urology | DX: C61 Malignant neoplasm of prostate (principal) | CPT/HCPCS: 36415; 84153 ==

== ENCOUNTER → 2024-04-22 | Outpatient (CLI) | payer MEDICARE, OTHER, SELFPAY ==
[2024-04-22 11:02] LABS: PSA,Total- Diagnostic 0.08 ng/mL (0.0-4.0)
== END | disposition home or self-care (01) ==
LOC: LAB 09:48
PROVIDERS: PCP Family Medicine; Referring Provider Urology; Visit Provider Urology
DX: C61 Malignant neoplasm of prostate (principal)
CPT/HCPCS: 36415; 84153

== ENCOUNTER → 2024-08-23 | Outpatient (CLI) | payer MEDICARE, OTHER, SELFPAY ==
[2024-08-24 03:42] LABS: PSA,Total- Diagnostic 0.88 ng/mL (0.00-4.00)
== END | disposition home or self-care (01) ==
LOC: LAB 08:55
PROVIDERS: PCP Family Medicine; Referring Provider Urology; Visit Provider Urology
DX: C61 Malignant neoplasm of prostate (principal)
CPT/HCPCS: 36415; 84153

== ENCOUNTER → 2024-11-23 | Outpatient (CLI) | payer MEDICARE, OTHER, SELFPAY | END | disposition home or self-care (01) | LOC: LAB 08:44 | PROVIDERS: PCP Family Medicine; Referring Provider Nurse Practitioner; Visit Provider Nurse Practitioner | DX: C61 Malignant neoplasm of prostate (principal) | CPT/HCPCS: 36415; 84153 ==

== ENCOUNTER → 2024-11-29 | Outpatient (CLI) | payer MEDICARE, OTHER, SELFPAY ==
--- NOTE | 2024-11-29 11:00 | PET_ITS ---
PROCEDURE: PET/CT TUMOR BASE -THIGH SUBS 11/29/2024 REASON FOR EXAM: 73 y/o M with PYLARIFY. TECHNIQUE: Following the intravenous administration of radionucleotide, image acquisition on a dedicated PET/CT unit was performed at one hour post injection. A preliminary CT study encompassing the Skull base, neck, chest, abdomen, pelvis, and proximal thighs was performed for purposes of attenuation correction and anatomic localization. The proximal thighs were also included. RADIOPHARMACEUTICAL: 9.9 mCi Pylarify (Piflufolastat F18) - Prostate Specific Membrane Agent - IV was injected into he patient. RADIATION DOSE SUMMARY: Effective Dose: Approximately 7 mSv for a standard whole-body PET scan Organ Doses: Varies by organ, with higher doses typically to the bladder, liver, and brain COMPARISON: COMPARISON FROM CT, PET OR OTHER PERTINENT EXAMS: Prior PYLARIFY PET-CT of 08/04/2023. FINDINGS: Physiologic uptake: There may be expected metabolic uptake within the brain, tongue and floor of the mouth and larynx/vocal cords, heart, corona (many normal individuals have hilar uptake in less than 3 nodes with mildly avid hilar nodes less than 2.7 SUV), liver and spleen, system, and GI tract and symmetric muscle uptake. FDG AVID AND NON-AVID LESIONS. Reported avid SUV values (g/mL*) are maximum SUV. NECK: There are no significant neck abnormalities. CHEST: At least mild coronary artery calcification is noted. Chest wall- There are no significant chest wall abnormalities. Axilla- There are no significant axillary abnormalities. Lung parenchyma- There are no significant lung parenchyma abnormalities. Mediastinum- There are no significant hilar or mediastinal adenopathy. Pleura- There are no significant pleural abnormalities. ABDOMEN: Cholelithiasis. Mild aortic calcification is seen; no evidence of abdominal aortic aneurysm. Stomach- No significant abnormalities. Liver- No significant abnormalities. Spleen- No significant abnormalities. Pancrease- No significant abnormalities. Kidneys- No significant abnormalities. Bowel- Normal bowel activity. Spine- No significant abnormalities. PELVIS: Mild sigmoid diverticulosis. No abnormal uptake is seen in the prostate bed Bowel- Normal physiologic bowel activity is identified. Masses- There are no pelvic masses. Bones- A focus of increased uptake is seen in the lateral right 7th rib, with SUV max of and without apparent fracture seen on corresponding CT images. This is concerning for a metastatic focus, and much less likely a nonvisualized fracture. Degenerative changes of the spine are seen. Mild sacroiliac joint degenerative changes are noted With the use of bone window settings, there are no osteolytic or osteoblastic lesions. There are no FDG avid lesions within the visualized portion of the axial skeleton. PET/PET/CT Tumor Base -Thigh Subs IMPRESSION: FDG avid- A focus of increased uptake is seen in the lateral right 7th rib, with SUV max of and without apparent fracture seen on corresponding CT images. This is concerning for a metastatic focus, and much le ss likely a nonvisualized fracture. Other: 1. Cholelithiasis. 2. Mild sigmoid diverticulosis. 3. At least mild coronary artery calcification is seen. Please note the low-dose CT scan was performed to facilitate PET image reconstr uction and anatomic localization and does not replace a diagnostic CT. Any diagnostic CT requested and performed at the time of the PET will be reported separately. Reading Location: [id number]
== END | disposition home or self-care (01) ==
LOC: ONC 08:42
PROVIDERS: PCP Family Medicine; Referring Provider Urology; Visit Provider Urology
DX: C61 Malignant neoplasm of prostate (principal); R97.21 Rising PSA following treatment for malignant neoplasm of prostate
CPT/HCPCS: 78815; A9595

== ENCOUNTER → 2025-03-09 | Outpatient (CLI) | payer MEDICARE, OTHER, SELFPAY ==
[2025-03-09 12:55] LABS: PSA,Total- Diagnostic 0.34 ng/mL (0.00-4.00)
== END | disposition home or self-care (01) ==
LOC: LAB 11:44
PROVIDERS: PCP Family Medicine; Referring Provider Nurse Practitioner; Visit Provider Nurse Practitioner
DX: C61 Malignant neoplasm of prostate (principal)
CPT/HCPCS: 36415; 84153

== ENCOUNTER → 2025-05-18 | Outpatient (CLI) | payer MEDICARE, OTHER, SELFPAY ==
--- NOTE | 2025-05-18 11:30 | CT_ITS ---
PROCEDURE: CHEST WITH CONTRAST 05/18/2025 REASON FOR EXAM: PRIOR RADIATION TO RIGHT RIB, FOCAL PAIN TECHNIQUE: Procedure Code: CTCHW Modality: CT Procedure: CHEST WITH CONTRAST Coronal and Sagittal reconstruction series were provided. CONTRAST: VOLUME: mL One or more dose reduction techniques were used (e.g., Automated exposure control, adjustment of the mA and/or kV according to patient size, use of iterative reconstruction technique). FINDINGS: Calcified granuloma is noted within the right upper lobe. A focus of patchy density is noted along the lateral periphery of the right lower lobe abutting the pleura, nonspecific. The remainder of the lungs is clear. The heart is normal in size. Minimal atherosclerotic calcifications. No thoracic lymphadenopathy. Very mild circumferential thickening of the distal esophagus may represent very mild esophagitis. Please correlate clinically. Cholelithiasis. Mild thoracic spondylosis. CT/Chest WITH Contrast IMPRESSION: Focus of patchy density in the right lower lobe abutting the pleura, nonspecifi c. Diagnostic considerations include infectious infiltrates, scarring, and less likely a neoplastic process. However, follow-u p imaging is recommended to evaluate for stability or resolution. Reading Location: [id number]
== END | disposition home or self-care (01) ==
LOC: CT 11:23
PROVIDERS: PCP Family Medicine; Referring Provider Student in an Organized Health Care Education/Training Program; Visit Provider Student in an Organized Health Care Education/Training Program
DX: C79.51 Secondary malignant neoplasm of bone (principal); R07.89 Other chest pain
CPT/HCPCS: 71260; Q9967